=== PATIENT | female | born 1955 | race African-American/Black ===

== ENCOUNTER 2020-02-04 21:09 | Inpatient (IN) | payer MEDICARE, MEDICAID, OTHER ==
[2020-02-04 22:37] LABS: Anion Gap 20 mmol/L (10-20); BUN (Urea Nitrogen) 66 mg/dL (9.8-20.1); Calc. Creatinine Clearance 0 mL/min (70-130); Calcium 8.9 mg/dL (7.8-10.44); Carbon Dioxide 26 mmol/L (23-31); Chloride 123 mmol/L (98-107); Estimated GFR-MDRD 11; Glucose 262 mg/dL (80-115); Potassium 3.3 mmol/L (3.5-5.1); Sodium 166 mmol/L (136-145)
--- NOTE | 2020-02-05 00:42 | PDOC.FPRHP ---
- History of Present Illness Chief Complaint: Weakness History of Present Illness: Pt reports to ED today after EMS found her in her home after her family was unable to contact her for 48 hours. Her home was apparently heated 109 degrees due to no AC on in her house. Her Temp was 101. She was found to be poorly responsive at that time. Outlying ER: Was not able to answer questions. Her labs were found to be: Na was 174, Bun/Heat Treater Helper = 64.8/5.0, K+ = 3.9, WBC = 12K, H/H = 8.4/28.7. CT of abdomen showed an abscess in right abdominal wall. Unsure if patient was actually started on antibiotics at that time. Our ER: Pt was given another 1L of fluid. Her repeat labs were found to be: Na 166, Bun/Heat Treater Helper = 66/4.99. K+ = 3.3 Upon interviewing the patient, she was unable to give significant answers about what happened or her past medical history. - Allergies/Adverse Reactions Allergies Allergy/AdvReac Type Severity Reaction Status Date / Time No Known Drug Allergies Allergy Verified 02/05/20 11:19 - Home Medications Medication Instructions Recorded Confirmed Type Carvedilol 3.125 mg PO BID 02/05/20 02/05/20 History Levothyroxine Sodium [Synthroid] 75 mcg PO DAILY 02/05/20 02/05/20 History Losartan [Cozaar] 25 mg PO DAILY 02/05/20 02/05/20 History Lovastatin 40 mg PO HS 02/05/20 02/05/20 History cloNIDine HCl 0.1 mg PO BID 02/05/20 02/05/20 History metFORMIN HCl [Metformin HCl ER] 500 mg PO HS 02/05/20 02/05/20 History - History PMHx: -NHL, treated with chemo from December-Jun 2019. Had recent [facility] [place]. -HTN -Type 2 DM -HLD -Hypothyroidism PSHx: -hysterectomy FHx: -unknown Social: -lives alone -former smoker -no ETOH use -unknown drug use - Review of Systems General: reports: fatigue. denies: fever/chills Eyes: reports: other (headache) Cardiovascular: denies: chest pain, palpitation Gastrointestinal: reports: abdominal pain. denies: nausea, vomiting, diarrhea Neurological: reports: weakness - Vital signs BP: 96/45 HR: 70 RR: 18 Tmax: 98.2 - Physical Exam Constitutional: NAD HEENT: normocephalic and atraumatic, other (poor dentition, white plaques visualized on tongue) Heart: RRR Lungs: no rales/rhonchi, no wheezing, other (poor inspiratory effort) Abdomen: soft, other (tender mass palpable on RLQ, with flutuance) -Musculoskeletal: bilateral LE cold to touch -Skin: tenting of skin, capillary refill > 2 sec, dry/flaky skin, mucosal membranes dry , diffuse onychomycosis of bilateral feet Psychiatric: other (A&O x1, oriented to person only) FMR H&P: Results - Labs Result Diagrams: 02/05/20 02:17 02/05/20 08:28 Lab results: Sodium 166 mmol/L (136-145) H* 02/04/20 22:02 Potassium 3.3 mmol/L (3.5-5.1) L 02/04/20 22:02 Chloride 123 mmol/L (98-107) H 02/04/20 22:02 Carbon Dioxide 26 mmol/L (23-31) 02/04/20 22:02 BUN 66 mg/dL (9.8-20.1) H 02/04/20 22:02 Creatinine 4.99 mg/dL (0.6-1.1) H 02/04/20 22:02 Glucose 262 mg/dL (80-115) H 02/04/20 22:02 Calcium 8.9 mg/dL (7.8-10.44) 02/04/20 22:02 FMR H&P: A/P - Problem List (1) Hypernatremia Current Visit: Yes Status: Acute Code(s): E87.0 - HYPEROSMOLALITY AND HYPERNATREMIA (2) PADDY (acute kidney injury) Current Visit: Yes Status: Acute Code(s): N17.9 - ACUTE KIDNEY FAILURE, UNSPECIFIED (3) Type 2 diabetes mellitus Current Visit: Yes Status: Acute (4) Anemia Current Visit: Yes Status: Acute Code(s): D64.9 - ANEMIA, UNSPECIFIED (5) Non-Hodgkin lymphoma Current Visit: Yes Status: Acute Code(s): C85.90 - NON-HODGKIN LYMPHOMA, UNSPECIFIED, UNSPECIFIED SITE (6) HTN (hypertension) Current Visit: Yes Status: Acute Code(s): I10 - ESSENTIAL (PRIMARY) HYPERTENSION (7) Hypothyroid Current Visit: Yes Status: Acute Code(s): E03.9 - HYPOTHYROIDISM, UNSPECIFIED (8) HLD (hyperlipidemia) Current Visit: Yes Status: Acute Code(s): E78.5 - HYPERLIPIDEMIA, UNSPECIFIED (9) Oral omar Current Visit: Yes Status: Acute Code(s): B37.0 - CANDIDAL STOMATITIS (10) Volume depletion Current Visit: Yes Status: Acute Code(s): E86.9 - VOLUME DEPLETION, UNSPECIFIED - Plan ## Severe Hypernatremia 2/2 Volume Depletion -Na @ 166 -already had 2L fluids -NS @ 130ml/hr -goal to decrease Na @ 8-10mmol/24 hr -BMP Q4HR ## Pre Renal PADDY -Bun/Heat Treater Helper = 66/5 -careful volume resuscitation -strict I/O -BMP Q4HR ## Hypokalemia -K+ @ 3.3 -replete with 20mEq KCl -BMP Q4HR ## Abdominal Wall Abscess -[facility], unsure if antibiotics were given -will start on Zosyn 2.25g/Q6HR due to CrCl <20 -blood cultures taken at [facility] f/u ## NHL -recent radiation treatment @ [facility] in [place] -H/H .01/20.7 -recheck CBC in AM ## Anemia -H/H .01/20.7 -recheck CBC in AM ## Oral Candidiasis -nystatin oral suspension ## Type 2 DM -glucose 262 -mild SSI -hold home medication metformin ## Hypothyroidism -home medication levothyroxine 75mcg ## HTN -home medications coreg 3.125mg BID, clonidine, 0.1 BID, losartan 25mg, HCTZ 25mg -will hold for now ## HLD -home medication lovastatin 40mg Diet: Carb Consistent IVF: NS @ 130ml/hr PPX: Lovenox Code: Full-->need to verify with patient family PCP: Terry Flores Dispo: admitted to inpatient, telemetry. carefully monitoring electrolytes, volume resuscitation. will anticipate need for case management for discharge planning. FMR H&P: Upper Level - Plan Date/Time: 02/05/20 0040 I, Clarita oDrsey, have evaluated this patient and agree with findings/plan as outlined by r d internship resident. Pertinent changes/additions are listed here. 64 yo F with PMH non-hodgkins lymphoma, DM, HTN, hypothyroid presents via EMS after family was unable to get in touch with her. No history able to be obtained from patient. She does not know why she is in the hospital and can give no account. ED course as above. PE: Gen: sitting up comfortably in bed, alert, oriented to person only, pleasantly confused ENT: oral omar Heart: RRR, 3/6 systolic ejection murmur Lungs: CTAB Abd: R side TTP with large fluctuant, firm area. No erythema. Ext: decreased turgor, MM dry Severe hypernatremia -Likely 2/2 volume depletion. No current ongoing loss. -Initial Na+ 174 @ 16:30 on 02/03. Free water deficit at that time, 8L. s/p 2 L in outside and our ED. Considered chronic as symptoms present for unknown duration, and likely >48h. Goal decrease of 10 per 24 hours. Patient had decrease of 8 in 6 hour period. Will continue to trend BMP q4h and replace volume deficit with caution as to avoid too rapid correction. Goal to replace free water deficit in first 24 hours if possible, now to replace 2L in next 15 hours. Will start NS @ 130. This does not take into account maintenance requirement. May increase rate pending next BMP. Abdominal wall abscess -Mentioned in [facility] ED doctor notes though no CT report available. CD in chart. Will request records. WBC 12 on admission. -Cefepime was ordered in outside in ED but seems it was never given. Will start Zosyn renally dosed for now and will benefit from further info in am. -Blood and urine cultures in [facility] pending PADDY -Needs significant volume repletion. CR 5. Microcytic anemia -No current bleeding source, Hgb 8.4, continue to trend. Expect further decrease with volume repletion Hypokalemia -Replace and monitor Addendum - Attending - Attending Attestation Date/Time: 02/05/20 0876 I personally evaluated the patient and discussed the management with Dr. Carpenter/ Willian. I agree with the History, Examination, Assessment and Plan documented above with any addition or exceptions noted below. Somnolent at time of my exam. Na has been correcting too quickly. Will slow NS rate and allow her to equilibrate overnight. Repeat BMP pending at this time. Gen surg consulted to evaluate abscess on her right flank/abdomen seen on CT scan. F/U recommendations.
[2020-02-05] MEDS ORDERED: Acetaminophen 325 MG TAB PO PRN (01:00)
[2020-02-05] MEDS ORDERED: Ondansetron ODT 4 MG TAB PO PRN (01:00)
[2020-02-05] MEDS ORDERED: Ondansetron PF 4 MG/2 ML Vial IVP PRN (01:00)
[2020-02-05] MEDS ORDERED: Sodium Chloride 0.9% 1,000 ML IV SCH (01:15)
[2020-02-05] MEDS ORDERED: Dextrose 5% in Water 1,000 ML IV PRN (01:29)
[2020-02-05] MEDS ORDERED: Dextrose 50% Abboject 50 ML SYRINGE SLOW IVP PRN (01:29)
[2020-02-05] MEDS ORDERED: Potassium Chloride 20 MEQ/100 ML PREMIX BAG IVPB SCH (01:30)
[2020-02-05 02:47] LABS: Anion Gap 22 mmol/L (10-20); BUN (Urea Nitrogen) 70 mg/dL (9.8-20.1); Calc. Creatinine Clearance 0 mL/min (70-130); Calcium 9.1 mg/dL (7.8-10.44); Carbon Dioxide 25 mmol/L (23-31); Chloride 124 mmol/L (98-107); Estimated GFR-MDRD 10; Glucose 210 mg/dL (80-115); Potassium 3.6 mmol/L (3.5-5.1); Sodium 167 mmol/L (136-145)
[2020-02-05 02:48] LABS: Band 37 % (5-11); Hemoglobin 8.4 g/dL (12.0-16.0); Hypochromia SLIGHT = 6-15 cells (100X) (0-5/hpf); Lymphocytes 15 % (21-51); MDiff Complete? YES; Mean Corpuscular HGB CONC 29.9 g/dL (32.0-36.0); Mean Corpuscular Hemoglobin 23.6 pg (27.0-31.0); Mean Corpuscular Volume 78.8 fL (78.0-98.0); Mean Platelet Volume 7.5 fL (7.4-10.4); Metamyelocyte 1 % (0-0); Monocytes 7 % (0-10); Myelocyte 1 % (0-0); Neutrophil 38 % (42-75); Platelet Count 156 thou/uL (130-400); Platelet Morphology Comment Appears Adequate; RBC Distribution Width 20.4 % (11.5-14.5); Reactive Lymphocytes 1 % (0-10); Red Blood Cell (RBC) Count 3.54 mill/uL (4.20-5.40); White Blood Cell (WBC) Count 8.2 thou/uL (4.8-10.8)
[2020-02-05] MEDS ORDERED: Lactated Ringer's 1,000 ML IV SCH ×4 (05:30→09:18)
[2020-02-05] MEDS ORDERED: Dextrose 5% in Water 1,000 ML IV SCH (05:30)
[2020-02-05] MEDS: Piperacillin/Tazobactam 2.25 GM in Sodium Chloride 0.9% 100 ML IVPB SCH ×4 (05:38→22:03)
[2020-02-05] MEDS: HumaLOG 300 UNITS/3 ML VIAL SC PRN (06:25)
[2020-02-05] MEDS: Heparin 5,000 UNITS/ML VIAL SC SCH ×3 (08:35→22:03)
[2020-02-05] MEDS: Nystatin 500,000 UNITS/5 ML UDCUP SSW SCH ×4 (08:35→22:03)
[2020-02-05 08:54] LABS: Anion Gap 19 mmol/L (10-20); BUN (Urea Nitrogen) 74 mg/dL (9.8-20.1); Calc. Creatinine Clearance 12 mL/min (70-130); Calcium 8.4 mg/dL (7.8-10.44); Carbon Dioxide 27 mmol/L (23-31); Chloride 118 mmol/L (98-107); Estimated GFR-MDRD 10; Glucose 224 mg/dL (80-115); Potassium 3.5 mmol/L (3.5-5.1); Sodium 160 mmol/L (136-145)
[2020-02-05] MEDS ORDERED: Insulin Glargine 10 UNITS in Pre-Filled Syringe 1 EACH SC SCH (09:00)
[2020-02-05] MEDS ORDERED: Enoxaparin Sodium 30 MG/0.3 ML SYRINGE SC SCH (09:00)
[2020-02-05] MEDS: Sodium Chloride 0.9% 1,000 ML IV SCH ×4 (10:24→22:04)
--- NOTE | 2020-02-05 12:13 | RAD ---
CHEST 1 VIEW: Date: 02/05/2020 HISTORY: Fluid overload. COMPARISON: Radiograph prior day. FINDINGS: The port catheter tip is at the mid SVC. No air space consolidation, pneumothorax, or effusion. No ac venetie ira osseous abnormality. Cardiac silhouette and mediastinal contours are similar. IMPRESSION: 1. No acute intrathoracic abnormality. 2. Calcific tendinosis left rotator cuff. POS: [facility]
[2020-02-05 14:59] LABS: Bilirubin 1+ (Negative); Blood, Urine 1+ (Negative); Clarity Extra Turbid (Clear); Glucose, Urine (Dipstick) 30 mg/dL (Negative); Ketone, Urine Negative (Negative); Leukocyte 250 Leu/uL (Negative); Nitrite Negative (Negative); Protein, Urine (Dipstick) 70 mg/dL (Neg-Trace); Specific Gravity, Urine 1.023 (1.002-1.036); Squamous Epithelial 0-3 HPF (0-3); Urobilinogen Normal mg/dL (Less than 2); WBC/HPF Greater than 50 HPF (0-3)
[2020-02-05 15:01] LABS: Bacteria/HPF 1+ HPF (None Seen)
[2020-02-05 15:02] LABS: Urine Culture Reflex Yes Yes
[2020-02-05 16:41] LABS: Anion Gap 19 mmol/L (10-20); BUN (Urea Nitrogen) 70 mg/dL (9.8-20.1); Calc. Creatinine Clearance 13 mL/min (70-130); Calcium 7.7 mg/dL (7.8-10.44); Carbon Dioxide 22 mmol/L (23-31); Chloride 111 mmol/L (98-107); Estimated GFR-MDRD 12; Glucose 137 mg/dL (80-115); Potassium 3.6 mmol/L (3.5-5.1); Sodium 148 mmol/L (136-145)
[2020-02-05] MEDS ORDERED: HumaLOG 300 UNITS/3 ML VIAL SC SCH (17:00)
--- NOTE | 2020-02-05 20:24 | CON ---
DATE OF CONSULTATION: HISTORY OF PRESENT ILLNESS: Alicja An is a 64-year-old female, lives in [facility]. Apparently, the patient could not be reached at home by her family and the EMS arrived. The patient answered the door and refused to be cooperative, but finally let EMS in and the patient's house was 109 degrees. The patient's temperature was 101 degrees. She was very dehydrated. She was seen in [place] and sodium was 177, chloride 123, CO2 of 26, BUN 64, creatinine 5. The patient was hydrated, transferred to this facility, admitted by [facility]. CAT scan of the abdomen and pelvis revealed a hernia in [place], although I cannot view that image at this time and there is no official report. There was some necrotic tumor mass reported on the CAT scan. As stated above, I cannot review the scan or report at this hour as radiologist is not available. The CD ROM provided, but not seem to load. The patient is not a reliable historian and cannot give a past history. I called the patient's nieces, who have been closely involved in her care. The patient apparently has had abdominal wall hernia for more than 10 years. She reported to the hospital regarding this, found to have lymphoma on workup. She had undergone chemotherapy, began in March 2019, treating her for non-Hodgkin lymphoma. She completed chemotherapy in September 2018. This was overseen by [facility], Dr. Barry, . The patient had a PET scan demonstrating tumor mass in her liver and referred to Dr. Jernigan, radiation oncologist, . She finished radiation therapy about 3-4 weeks ago. She was to follow up this week with [facility] and have another CAT scan to determine response to therapy. Family states the patient had been having some problems eating in pain, but was able to hold things down. Apparently, the patient was staying with her nieces in [place], but the patient wanted to go home and told the family that the doctor said it would be okay. PAST MEDICAL HISTORY: Diabetes, hypertension. Family describes chronic low heart rate. PAST SURGICAL HISTORY: Hysterectomy, bilateral salpingo-oophorectomy, and MediPort, right subclavian vein. REVIEW OF SYSTEMS: From the family reveals no history of coronary or pulmonary disease. She does not smoke. She does not drink alcohol. MEDICATIONS: At home, 1. Levothyroxine 75 mcg a day. 2. Metformin 500 at bedtime. 3. Clonidine 0.1 mg b.i.d. 4. Carvedilol 3.125 mg b.i.d. 5. Losartan 25 mg daily. 6. Lovastatin 80 mg at bedtime. At this facility, the patient's sodium was 160 on arrival at 8 o'clock, it was 148 at 1119 hours. She has normal saline running at 150 an hour. Potassium is 3.6, chloride 111, carbon dioxide 22, BUN 70, creatinine 4.5, decreased from 5 on admission. Glucoses are 260 to 190. White count 8 and hemoglobin 8.4. The patient's exam reveals that she does talk, although pauses and takes some time to answer questions and does not reveal the answer to many questions. PHYSICAL EXAMINATION: VITAL SIGNS: She is 5 feet tall, pounds, 29 BMI, temperature 97.4, pulse 54, and blood pressure 96/55. Rivero catheter was placed, reveals urine in the bag. LUNGS: Clear to auscultation. No rhonchi. No wheezes. CARDIAC: Regular rate and rhythm. ABDOMEN: Skin changes consistent with recent radiation therapy. She is slightly tender in her upper abdomen. This may be more skin changes from radiation. Her abdomen is slightly protuberant. There appears to be a very large hernia mass. EXTREMITIES: No ankle edema. ASSESSMENT AND PLAN: 1. Non-Hodgkin lymphoma, status post chemotherapy, began in March 2019, more recent radiation therapy to abdomen, liver, and finished three to four weeks ago. Has been home one week from [place]. PET scan reveals some liver disease. According to the family, it was treated with radiation therapy. Oncologist, Medical, and Radiation as listed above. 2. Long-standing ventral hernia. It is tender to palpation, but underlies in an area of radiation changes, completed radiation 3-4 weeks ago. I would like to review her CAT scan and talk with Dr. Jenrigan, her radiation oncologist. 3. Severe dehydration, hypernatremia, acute kidney injury. We would recommend Nephrology consult. 4. Hypertension. 5. Diabetes. ADDENDUM: I have spoken with Dr. Jernigan, radiation oncologist, and to Dr. 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 The patient underwent 6 cycles of CHOP therapy. She has a past history of chronic kidney disease with creatinine of 1.7 to 2. It has been down to 0.8 in late November, but in later 2018, was 2. She as stated above underwent completion radiation therapy for residual disease of liver. Late in 2019, she had a biliary stent placed for biliary disease. This is the balance of the information that I received from these 2 oncologists. Plan is attempt at nonsurgical management with HIDA scan and percutaneous drainage of the process and make further recommendations based on the outcomes of these interventions. Job ID: [id number]
[2020-02-05] MEDS ORDERED: Sodium Chloride 0.9% 500 ML IV SCH (20:45)
[2020-02-05] MEDS ORDERED: cloNIDine 0.1 MG TAB PO SCH (21:00)
[2020-02-06] MEDS: Carvedilol 3.125 MG TAB PO SCH ×2 (03:55→09:05)
[2020-02-06] MEDS: Piperacillin/Tazobactam 2.25 GM in Sodium Chloride 0.9% 100 ML IVPB SCH ×3 (04:30→18:06)
[2020-02-06] MEDS: Levothyroxine Sodium 75 MCG TAB PO SCH (04:31)
--- NOTE | 2020-02-06 05:10 | PDOC.FM ---
- Subjective Subjective: Pt states she feels ok this morning. She reports some abdominal pain. She denies weakness, SOB, chest pain, or nausea. - Objective MAR Reviewed: Yes Vital Signs & Weight: Vital Signs (12 hours) Temp Pulse Resp BP BP Pulse Ox 02/06/20 04:32 98.3 F 56 L 16 90/46 L 95 02/06/20 03:36 56 L 14 91/50 L 02/06/20 00:00 97.8 F 59 L 16 87/43 L 93 L 02/05/20 22:21 86/48 L 02/05/20 20:19 97.6 F 58 L 14 86/53 L 100 02/05/20 20:00 93 L Weight Admit Weight 67.302 kg Weight 67.302 kg I&O: 02/04/20 02/05/20 02/06/20 06:59 06:59 06:59 Intake Total 2829 Output Total 200 Balance 2629 Result Diagrams: 02/06/20 04:56 02/06/20 04:56 Phys Exam - Physical Examination Constitutional: NAD HEENT: moist MMs Neck: no JVD Respiratory: no wheezing, clear to auscultation bilateral Cardiovascular: RRR 2/6 systolic murmur Gastrointestinal: positive bowel sounds TTP on the right Musculoskeletal: no edema, pulses present Neurological: normal sensation, moves all 4 limbs Deviation from normal: AAO to person and place Dx/Plan - Plan Plan: Severe hypernatremia 2/2 volume depletion, improving -Continue fluid recusitation -Monitor for fluid overload Pre renal PADDY -mild improvement overnight -Nephrology consulted Hypokalemia, resolved Abdominal wall abscess vs necrotic tissue -Dr. Sims consulted for evaluation -Currently on renally dosed Zosyn DM2 -Continue lantus, holding meal time Humalog due to poor eating NHL -Monitoring H/H Anemia -Monitoring H/H, likely 2/2 chemo, radiation, and NHL -Decreased to Hgb of 7.4, likely 2/2 hemodilution, will transfuse at less than 7.0 unless surgery is indicated Hypothyroidism -TSH appropriate, continue home levothyroxine 75mcg HTN -Pt has been having low BPs overnight. I will hold clonidine this AM, continue coreg HLD -Continue home lovastatin Addendum - Attending - Attending Attestation Date/Time: 02/06/20 8672 I personally evaluated the patient and discussed the management with Dr. Boswell. I agree with the History, Examination, Assessment and Plan documented above with any addition or exceptions noted below. Nephro consulted by gen surg. Patient's Cr and Na were improving. Chloride now uptrending so will switch to LR. CT guided drainage of abdominal wall fluid collection today. F/U gen surg recs.
[2020-02-06 05:31] LABS: ALT (SGPT) 13 U/L (8-55); AST (SGOT) 18 U/L (5-34); Albumin 2.4 g/dL (3.4-4.8); Alkaline Phosphatase 79 U/L (40-110); Anion Gap 16 mmol/L (10-20); BUN (Urea Nitrogen) 63 mg/dL (9.8-20.1); Bilirubin, Total 0.7 mg/dL (0.2-1.2); Calc. Creatinine Clearance 17 mL/min (70-130); Calcium 7.2 mg/dL (7.8-10.44); Carbon Dioxide 19 mmol/L (23-31); Chloride 115 mmol/L (98-107); Estimated GFR-MDRD 16; Globulin 2.8 g/dL (2.4-3.5); Glucose 102 mg/dL (80-115); Potassium 3.3 mmol/L (3.5-5.1); Protein, Total 5.2 g/dL (6.0-8.3); Sodium 147 mmol/L (136-145)
[2020-02-06 05:42] LABS: Band 26 % (5-11); Hemoglobin 7.4 g/dL (12.0-16.0); Hypochromia SLIGHT = 6-15 cells (100X) (0-5/hpf); Lymphocytes 9 % (21-51); MDiff Complete? YES; Mean Corpuscular Hemoglobin 23.2 pg (27.0-31.0); Mean Corpuscular Volume 77.5 fL (78.0-98.0); Mean Platelet Volume 11.4 fL (7.4-10.4); Microcytosis SLIGHT = 6-15 cells (100X) (0-5/hpf); Monocytes 13 % (0-10); Neutrophil 52 % (42-75); Platelet Count 65 thou/uL (130-400); Platelet Morphology Comment Appears Decreased; RBC Distribution Width 20.2 % (11.5-14.5); Red Blood Cell (RBC) Count 3.17 mill/uL (4.20-5.40); White Blood Cell (WBC) Count 5.8 thou/uL (4.8-10.8)
[2020-02-06] MEDS ORDERED: Potassium Chloride 20 MEQ TAB PO SCH (06:30)
[2020-02-06] MEDS: Sodium Chloride 0.9% 1,000 ML IV SCH (07:06)
[2020-02-06] MEDS: Insulin Glargine 14 UNITS in Pre-Filled Syringe 1 EACH SC SCH (09:06)
[2020-02-06] MEDS: Nystatin 500,000 UNITS/5 ML UDCUP SSW SCH ×3 (09:07→17:11)
[2020-02-06] MEDS: Heparin 5,000 UNITS/ML VIAL SC SCH (09:12)
--- NOTE | 2020-02-06 09:24 | CON ---
DATE OF CONSULTATION: HISTORY OF PRESENT ILLNESS: Ms. An is a 64-year-old black female, who was admitted due to an acute kidney injury. She was found at home, poorly responsive with no air conditioning at the same time. She was found to be in acute kidney injury. Empiric aggressive volume repletion was given. She was also noted to be hypernatremic. This morning, the patient is feeling a little better, but her conversation with me was somewhat limited. She is still confused. REVIEW OF SYSTEMS: Positive for mental status change. No chest pain. No shortness of breath. No nausea. No vomiting. ? of syncopal episode. No productive cough. Decreased appetite. Decreased energy level. No abdominal pain. CURRENT MEDICATIONS: Include the following; 1. Currently on Coreg 3.125 mg p.o. b.i.d. 2. Currently on insulin glargine 14 units subcu q.a.m. 3. Levothyroxine 75 mcg daily. 4. Normal saline at 150 mL/hr. 5. Zosyn 2.25 g IV q.6 hours. 6. P.r.n. potassium replacement. HOME MEDICATIONS: Included; 1. Metformin 500 mg p.o. at bedtime. 2. Clonidine 0.1 mg p.o. b.i.d. 3. Losartan 25 mg daily. 4. Lovastatin 40 mg tablet at bedtime. PAST MEDICAL HISTORY: 1. Type-2 diabetes mellitus. 2. Hypertension. 3. Hyperlipidemia. 4. Hypothyroidism. 5. History of non-Hodgkin's lymphoma, status post chemotherapy. 6. History of tumor mass. PAST SURGICAL HISTORY: 1. Status post hysterectomy. 2. Status post bilateral salpingo-oophorectomy. 3. Status post MediPort placement at the right subclavian vein. SOCIAL HISTORY: The patient lives in [place]. The patient lives alone. She is a former smoker. Currently, no alcohol or IV drug use. ALLERGIES: NO KNOWN DRUG ALLERGIES. TRAUMA: None. IMMUNIZATION: Unknown. HOSPITALIZATIONS: Please see past medical history. PHYSICAL EXAMINATION: VITAL SIGNS: Blood pressure is currently at 100/54, heart rate 58, respiratory rate 20, temperature 98.5, O2 saturation 96%. GENERAL: The patient is arousable, but lethargic. Limited conversation was done. SKIN: Decreased turgor. HEENT: She has pale conjunctivae. Anicteric sclerae. No neck mass. No carotid bruits. No JVD. CHEST: No deformities. LUNGS: Decreased breath sounds. HEART: Normal sinus rhythm. No murmur. No gallops. No rubs. ABDOMEN: Globular, soft, nontender. No masses. EXTREMITIES: No edema. No deformities. NEUROLOGICAL: The patient is confused, limited interaction with conversation. IMAGING DATA: Chest x-ray showed no acute intrathoracic abnormality. LABORATORY DATA: Laboratories on February 06, 2020; white count 5.8, hemoglobin 7.4. Sodium 147, potassium 3.3, chloride 115, carbon dioxide 19, BUN 63, creatinine 3.55, albumin 2.4. On February 05, 2020; BUN 70, creatinine 4.5. On February 05, 2020; serum sodium was 160, BUN 74, creatinine 5.04 with potassium 3.5. On February 04, 2020; serum sodium 166, BUN 66, creatinine 4.99. Urinalysis on February 05, 2020; specific gravity was 1.023, RBC 11-20, WBC greater than 50, protein is 70. No pigmented granular casts. ASSESSMENT AND PLAN: 1. Acute kidney injury - consider hemodynamically-mediated renal dysfunction. The patient's clinical history suggests that she was volume depleted and has expose to a possible heated house. The patient has no air conditioning with her house. Empiric volume repletion is being given and has shown improvement with IV hydration. There is no indication for any emergent dialysis with this patient. Urinalysis did not suggest any acute tubular necrosis. Please note that urine specific gravity is very concentrated suggesting volume depletion. 2. Hypernatremia - secondary to free water deficit. Agree with current IV fluids - currently receiving normal saline and this has improved the serum sodium as well as the renal function. I do not think we need to change the IV fluid for the moment. 3. Urinary tract infection, currently on empiric IV antibiotics. Overall, agree with current management. Consider rechecking renal ultrasound with this patient if this has not been done yet. Thank you for the consult. We will continue to follow. Job ID: [id number]
--- NOTE | 2020-02-06 10:08 | PRG ---
DATE OF SERVICE: 02/06/2020 SUBJECTIVE: Alicja An today is more communicative, although not a reliable historian. She is able to articulate words and make sentences, although slightly confused. She is much better mentally today than yesterday. Dr. Jacob Lisa has seen her and her renal function is improving. She is nonoliguric renal failure. OBJECTIVE: VITAL SIGNS: Temperature 98.5 degrees, heart rate 58, respiratory rate 20, 96% saturation, and blood pressure 100/54. GENERAL: The patient today states that she is not having any pain. She denies having abdominal pain. LUNGS: Clear to auscultation. CARDIAC: Regular rate and rhythm without murmur, rub, or gallop. ABDOMEN: Soft with a large hernia mass protruding supraumbilical, 5 cm defect, projecting to the right upper abdomen. LABORATORY DATA: This morning, her white count is 5.8, hemoglobin 7.4, she does have 26% bands. Her sodium is 147; potassium 3.3; carbon dioxide 19; BUN 63, improved from 70; creatinine 3.5, improved from 4.5; GFR 16, improved from 12. Urine output overnight is 550 mL. She is continued to be hydrated with normal saline. ASSESSMENT AND PLAN: 1. Ventral hernia, present for more than 10 years. There is no evidence of obstruction. I personally reviewed her CAT scans from [place], compared most recent CAT scan 2 days ago noncontrast with a noncontrast CAT scan stone protocol from 2019 prior to treatment of lymphoma. The patient on that 2019 CAT scan had multiple large right hepatic masses. She had a soft tissue mass in the herniated intraabdominal contents. In 2019, the ventral hernia had hepatic flexure colon present and a fluid collection. On this more recent CAT scan, the fluid collection persists with punctate areas of free air in the periphery, in the fluid content. What is new also is what appears to be calcific density, probably a gallstone from the gallbladder that was present in 2019. Also present is a biliary stent, which was not communicated by the family. She has multiple gallstones on her CAT scan. Concern is that with her normal white count with a left shift, she may have perforated gallbladder, as we interpret the CAT scan, currently appears to be a fluid collection emanating from the gallbladder area where there was inflammatory changes around the gallbladder. There does not appear to be any small bowel or large bowel perforation and with the patient's biliary stent, she could have free air from cholecystitis. Plan at this time is a HIDA scan and a CT-guided drainage of the fluid collection. I will discuss these findings with her oncologist at [facility], for which merlin have provided a phone number. We will continue to hydrate her and treat with antibiotics and await the results of the imaging studies noted above. 2. Encephalopathy secondary to hypernatremia and sepsis. 3. Acute kidney injury. It is unknown of her previous renal function. We will check with her oncologist when I talk to him. The tumor masses in the liver seen in 2019 since her radiation therapy of her abdominal wall, liver have improved. Job ID: [id number]
--- NOTE | 2020-02-06 10:24 | ULT ---
ULTRASOUND RETROPERITONEUM COMPLETE: (RENAL) DATE: 02/06/2020 HISTORY: 64-year-old female with renal failure FINDINGS: The right kidney measures 12 x 4.5 x 5.5 cm. The left kidney measures 12 x 6 x 5.5 cm. Both kidneys have normal parenchymal echogenicity. There is no hydronephrosis. No moderate sized or large renal cystic or solid renal lesion is identified. According to the ventilation mechanic, there is a Rivero catheter in an empty urinary bladder. IMPRESSION: normal sonographic appearance of the kidneys.
[2020-02-06] MEDS: Lactated Ringer's 1,000 ML IV SCH (13:24)
[2020-02-06] MEDS ORDERED: Midazolam HCl 2 mg/2 ml Vial ONE (13:26)
[2020-02-06] MEDS ORDERED: Fentanyl 100 MCG/2 ML VIAL ONE (13:26)
[2020-02-06] MEDS ORDERED: Sodium Bicarbonate 2.5 MEQ/5 ML VIAL ONE (13:26)
[2020-02-06 14:03] LABS: SARS-CoV-2 MS2 Positive; SARS-CoV-2 N Gene Negative; SARS-CoV-2 S Gene Negative; SARS-CoV-2 by NAA Not Detected (NotDetected); SARS-CoV-2 orf1ab Negative
--- NOTE | 2020-02-06 14:23 | NM ---
NM Hida (No EF) History: Evaluate for gallbladder rupture Comparison: CT exam February 04, 2020 Findings: Planar imaging of the abdomen was performed after the intravenous administration 5.1 mCi te chnetium 99m mebrofenin. Adequate hepatic radiotracer uptake. The gallbladder is seen quickly as well as the proximal small rbent wel. No evidence for bile leak within the soft tissue collection. Impression: No evidence for bile leak. Patent cystic and common bile duct duct stent.
--- NOTE | 2020-02-06 15:44 | CT ---
CT-guided abdominal abscess drainage: 02/06/2020 HISTORY: 64-year-old female with large abscess complicating a large right anterior abdominal wall hernia. TECHNIQUE: Signed informed consent obtained. Overlying skin prepared and draped in usual sterile fashion. Proced ure performed under step CT guidance. 25-gauge needle used to apply buffered lidocaine superficially and deeply. 5 Venezuelan Yueh catheter placed in tandem with the 25-gauge needle into the l umen of the abscess, from a left to right orientation. Stylette removed. 0.035 inch stiff Amplatz guidewire placed through Yueh catheter, into the abscess collection. UA catheter exchanged over the g uidewire for a 8 Venezuelan general purpose drainage catheter with stylette. Stylette and guidewire were removed. Pigtail loop formed and locked. Drainage catheter sutured in place at the skin. Patient tolerated procedure well. No complications. 5 mL of opaque brown purulent fluid sent to laboratory for culture and sensitivity. Additional 15 mL drained with syringe. Drainage catheter connected to ex ternal drainage bag via three-way stopcock. During aspiration, the catheter repeatedly clogged with debris, requiring forceful flush with 10 mL of normal saline x3. IMPRESSION: 1.) Successful CT-guided percutaneous drainage of large abscess within a large ventral abdominal brain ia. 8 Venezuelan pigtail drainage catheter left to external drainage. 2) if daily output is less than 20 mL, then recommend tube check under special procedures in 2 days, for possible exchange for a larger caliber drainage catheter.
[2020-02-06] MEDS ORDERED: Heparin 5,000 UNITS/ML VIAL SC SCH (21:00)
[2020-02-06] MEDS ORDERED: Sodium Chloride 0.9% 500 ML IV SCH (23:45)
[2020-02-07] MEDS: Lactated Ringer's 1,000 ML IV SCH ×4 (00:26→21:35)
[2020-02-07] MEDS: Piperacillin/Tazobactam 2.25 GM in Sodium Chloride 0.9% 100 ML IVPB SCH ×4 (00:27→21:35)
[2020-02-07 04:45] LABS: INR-International Normal Ratio 1.5; PTT 35.9 sec (22.9-36.1)
[2020-02-07 05:02] LABS: ALT (SGPT) 13 U/L (8-55); AST (SGOT) 17 U/L (5-34); Albumin 2.3 g/dL (3.4-4.8); Alkaline Phosphatase 99 U/L (40-110); Anion Gap 14 mmol/L (10-20); BUN (Urea Nitrogen) 48 mg/dL (9.8-20.1); Bilirubin, Total 0.7 mg/dL (0.2-1.2); Calc. Creatinine Clearance 29 mL/min (70-130); Calcium 7.4 mg/dL (7.8-10.44); Carbon Dioxide 21 mmol/L (23-31); Chloride 115 mmol/L (98-107); Estimated GFR-MDRD 26; Globulin 2.7 g/dL (2.4-3.5); Glucose 136 mg/dL (80-115); Potassium 3.4 mmol/L (3.5-5.1); Sodium 147 mmol/L (136-145)
[2020-02-07 05:04] LABS: Band 37 % (5-11); Eosinophils 2 % (0-10); Hemoglobin 6.5 g/dL (12.0-16.0); Lymphocytes 16 % (21-51); MDiff Complete? YES; Mean Corpuscular HGB CONC 30.2 g/dL (32.0-36.0); Mean Corpuscular Hemoglobin 23.2 pg (27.0-31.0); Mean Corpuscular Volume 76.7 fL (78.0-98.0); Mean Platelet Volume 9.6 fL (7.4-10.4); Monocytes 5 % (0-10); Neutrophil 39 % (42-75); Platelet Count 65 thou/uL (130-400); Platelet Morphology Comment Appears Decreased; Red Blood Cell (RBC) Count 2.79 mill/uL (4.20-5.40); White Blood Cell (WBC) Count 3.9 thou/uL (4.8-10.8)
--- NOTE | 2020-02-07 06:14 | PDOC.FM ---
- Subjective Subjective: Pt states she is doing well this morning. She denies chest pain, SOB, or severe abdominal pain. - Objective MAR Reviewed: Yes Vital Signs & Weight: Vital Signs (12 hours) Temp Pulse Resp BP BP Pulse Ox 02/07/20 04:26 97.5 F L 49 L 20 105/55 L 99 02/06/20 23:27 97.6 F 58 L 20 81/49 L 99 02/06/20 20:05 98.1 F 57 L 20 94/51 L 98 Weight Admit Weight 67.302 kg Weight 74.928 kg I&O: 02/05/20 02/06/20 02/07/20 06:59 06:59 06:59 Intake Total 4769 1241 Output Total 750 1250 Balance 4019 -9 Result Diagrams: 02/07/20 04:33 02/07/20 04:33 Phys Exam - Physical Examination Constitutional: NAD HEENT: moist MMs Neck: no JVD Respiratory: no wheezing, clear to auscultation bilateral Cardiovascular: RRR 2/6 systolic murmur Gastrointestinal: soft, no distention, positive bowel sounds pigtail catheter in place, no signs of infection or leakage around it Musculoskeletal: no edema, pulses present Neurological: normal sensation, moves all 4 limbs Deviation from normal: AAO to person, , but not place or time Skin: cap refill <2 seconds Dx/Plan - Plan Plan: Severe hypernatremia 2/2 volume depletion, improving -Continue fluid resuscitation -Monitor for fluid overload Pre renal PADDY -Serial improvements -Nephrology consulted Hypokalemia -Continue to replace Abdominal wall abscess vs necrotic tissue -Dr. Sims consulted for evaluation -Currently on renally dosed Zosyn -S/P CT guided 8 Yakut pigtail drain placement on 02/05 DM2 -Continue lantus, holding meal time Humalog due to poor eating NHL -Monitoring H/H Anemia -Monitoring H/H, likely 2/2 chemo, radiation, and NHL -Hemoglobin 6.5 this AM, transfusing 2 units with a lasix chaser Hypothyroidism -TSH appropriate, continue home levothyroxine 75mcg HTN -Holding coreg and clonidine for now with low BPs HLD -Continue home lovastatin Addendum - Attending - Attending Attestation Date/Time: 02/07/20 4360 I personally evaluated the patient and discussed the management with Dr. Boswell. I agree with the History, Examination, Assessment and Plan documented above with any addition or exceptions noted below. transfusing 2 u PRBC today for hemoglobin <7. abscess fluid growing multiple GNR. Awaiting further specialist recs. Prealbumin low. IV albumin per nephro. will start diet supplemental shake. Renal function continues to improve.
[2020-02-07] MEDS: Levothyroxine Sodium 75 MCG TAB PO SCH (06:23)
[2020-02-07] MEDS ORDERED: Furosemide 40 MG/4 ML VIAL SLOW IVP SCH ×2 (07:30→12:00)
[2020-02-07] MEDS ORDERED: Potassium Chloride 20 MEQ TAB PO SCH (08:00)
[2020-02-07] MEDS ORDERED: Albumin 25% 25 GM/100 ML BOT IVPB ONE (08:49)
--- NOTE | 2020-02-07 09:10 | PRG ---
DATE OF SERVICE: SERVICE: Renal Medicine. SUBJECTIVE: Ms. An is a 64-year-old black female, who was seen by the Renal Service for her acute kidney injury/hypernatremia. Empiric volume repletion was given with the patient with improvement of the renal function and hypernatremia. She also underwent CT-guided drainage of her abdominal abscess around the anterior abdominal wall hernia area. She is doing better since the drainage. In addition, renal ultrasound done on February 06, 2020, showed normal sonographic appearance of the kidneys. This morning, she voices no new complaints. The patient denies any chest pain or shortness of breath. OBJECTIVE: VITAL SIGNS: Blood pressure 91/46, heart rate 53, respiratory rate 16, temperature 98, and O2 saturation 97%. GENERAL: The patient is awake, alert, supine, comfortable, obese. SKIN: Adequate turgor. HEENT: She has a pale conjunctivae. Anicteric sclerae. NECK: No neck mass. No carotid bruits. No JVD. CHEST: No deformities. LUNGS: Clear breath sounds. No wheezing. No crackles. HEART: Normal sinus rhythm. No murmurs, gallops, or rubs. ABDOMEN: Globular, soft, nontender. No masses. EXTREMITIES: No edema. No deformities. MEDICATIONS: Medications of February 07, 2020, were reviewed. LABORATORY DATA: Laboratories of February 07, 2020; white count 10.9, hemoglobin 6.5. Sodium 147, potassium 3.4, chloride 105, carbon dioxide 21, BUN 40, creatinine 2.26, glucose 136, calcium 7.4, albumin is 2.3. Hemoglobin is 6.5. ASSESSMENT AND PLAN: 1. Anemia. Agree with blood transfusion. 2. Acute kidney injury-superimposed hemodynamically-mediated renal dysfunction. Continue IV fluid. Continue to optimize hemodynamics. We will start albumin infusion 25 g IV q.6. 3. Intraabdominal abscess. The patient is status post CT scan-guided drainage of the said abscess. In addition, hepatobiliary scan was done, which showed no overt abnormality per se. 4. Agree with current management. We will recheck basic metabolic panel and CBC in a.m. Job ID: [id number]
[2020-02-07] MEDS: Insulin Glargine 14 UNITS in Pre-Filled Syringe 1 EACH SC SCH (09:12)
[2020-02-07] MEDS: Albumin 25% 25 GM/100 ML BOT IVPB SCH ×3 (09:41→21:35)
[2020-02-07 11:28] VITALS: BMI 32.2
--- NOTE | 2020-02-07 11:35 | PDOC.GSPN ---
Surgery Progress Note: Subj - Subjective Narrative: Patient is feeling okay today. She is not complaining of any abdominal pain, although she is fish cleaner machine tender to palpation in the right abdomen overlying her hernia sac. The skin there is somewhat indurated as well. She has a drainage tube in place which has brownish-rand liquid pus in the drainage bag. She had 50 mL's out last night. Multiple gram-negative rods on culture so far. It does have an enteric odor. Her HIDA scan was negative for bile leak so the abscess origin is presumably bowel. Clinically however she is stable without evidence of peritonitis or sepsis. She is afebrile with no white count and has only focal tenderness overlying the abscess cavity. We will try to treat this conservatively with drainage. She may require a follow-up CT to evaluate the completeness of drainage, and whether the fluid collection appears to be reaccumulating which would suggest an ongoing enteric connection which could necessitate surgery. Currently however there is no indication for urgent surgery. No new recommendations at this time. Surgery Progress Note: Obj - Vital signs Vital signs: Vital Signs - Most Recent Temp Pulse Resp BP Pulse Ox 98.0 F 53 L 16 91/46 L 97 02/07/20 07:45 02/07/20 07:45 02/07/20 07:45 02/07/20 07:45 02/07/20 07:45 Surgery Progress Note: Results - Labs Result Diagrams: 02/07/20 04:33 02/07/20 04:33 Lab results: Laboratory Results - last 24 hr 02/06/20 02/07/20 02/07/20 23:34 04:30 04:33 WBC RBC Hgb Hct MCV MCH MCHC RDW Plt Count MPV Neutrophils % (Manual) Band Neuts % (Manual) Lymphocytes % (Manual) Monocytes % (Manual) Eosinophils % (Manual) Basophils % (Manual) Plt Morphology Comment PT 18.0 H INR 1.5 APTT 35.9 Sodium Potassium Chloride Carbon Dioxide Anion Gap BUN Creatinine Estimated GFR (MDRD) Glucose POC Glucose 140 H Calcium Magnesium 1.7 Total Bilirubin AST ALT Alkaline Phosphatase Serum Total Protein Albumin Globulin Albumin/Globulin Ratio Prealbumin Blood Type Antibody Screen Crossmatch 02/07/20 02/07/20 02/07/20 04:33 04:33 04:33 WBC 3.9 L RBC 2.79 L Hgb 6.5 L Hct 21.4 L MCV 76.7 L MCH 23.2 L MCHC 30.2 L RDW 20.0 H Plt Count 65 L MPV 9.6 Neutrophils % (Manual) 39 L Band Neuts % (Manual) 37 H Lymphocytes % (Manual) 16 L Monocytes % (Manual) 5 Eosinophils % (Manual) 2 Basophils % (Manual) 1 Plt Morphology Comment Appears Decreased L PT INR APTT Sodium 147 H Potassium 3.4 L Chloride 115 H Carbon Dioxide 21 L Anion Gap 14 BUN 48 H Creatinine 2.26 H Estimated GFR (MDRD) 26 Glucose 136 H POC Glucose Calcium 7.4 L Magnesium Total Bilirubin 0.7 AST 17 ALT 13 Alkaline Phosphatase 99 Serum Total Protein 5.0 L Albumin 2.3 L Globulin 2.7 Albumin/Globulin Ratio 0.9 L Prealbumin Blood Type B POSITIVE Antibody Screen NEGATIVE Crossmatch See Detail 02/07/20 02/07/20 05:21 09:31 WBC RBC Hgb Hct MCV MCH MCHC RDW Plt Count MPV Neutrophils % (Manual) Band Neuts % (Manual) Lymphocytes % (Manual) Monocytes % (Manual) Eosinophils % (Manual) Basophils % (Manual) Plt Morphology Comment PT INR APTT Sodium Potassium Chloride Carbon Dioxide Anion Gap BUN Creatinine Estimated GFR (MDRD) Glucose POC Glucose Calcium Magnesium Total Bilirubin AST ALT Alkaline Phosphatase Serum Total Protein Albumin Globulin Albumin/Globulin Ratio Prealbumin Less than 5.0 L Blood Type B POSITIVE Antibody Screen Crossmatch
--- NOTE | 2020-02-07 14:31 | PQF ---
CLINICAL DOCUMENTATION CLARIFICATION FORM: Patient Name: HECTOR AC Date of : 1955 Account: [id number] Admit Date: 02/05/2020 Facility: [facility] [place] Dear DR. Nidia SALINAS Date: 02/07/2020 1424 Please exercise your independent, professional judgment in responding to the clarification form. Clinical indicators are provided on the bottom of this form for your review. Please check appropriate box(es): Encephalopathy: Type: [ x ] Acute [ ] Subacute [ ] Chronic Etiology: [ ] Hypertensive [ x ] Metabolic [ ] Toxic [ x ] Septic [ ] Unspecified [ ] Other (please specify) [ ] Transient Alteration of Awareness [ ] Other diagnosis [ ] Unable to determine In addition, please specify: Present on Admission (POA): [x ] Yes [ ] No [ ] Unable to determine For continuity of documentation, please document condition throughout progress notes and discharge summary. Thank You. To be completed by CDI/Coding staff for physician review: CLINICAL INDICATORS - SIGNS / SYMPTOMS / LABS / RESULTS AND LOCATION IN EMR 02/04 ED REPORT: PT FOUND AFTER 2 DAYS INSIDE OF HOT HOUSE. PER REPORT PATIENT WAS FOUND WITH INSIDE TEMPERATURE OF 109. PATIENT RECENTLY DISCHARGED FROM THE HOSPITAL. PT WAS TRANSFERRED FOR CONTINUING TREATMENT OF DEHYDRATION AND LACTIC ACIDOSIS. FINAL PHYSICIAN DX: HYPERNATREMIA, ACUTE RENAL FAILURE, LACTIC ACIDOSIS 02/04 H&P ( SELLI) SHE WAS FOUND TO BE POORLY RESPONSIVE; UPON INTERVIEWING THE PATIENT, SHE WAS UNABLE TO GIVE SIGNIFICANT ANSWERS ABOUT WHAT HAPPENED OR HER PAST MEDICAL HISTORY. A/P: 1). SEVERE HYPERNATREMIA, 2). PADDY, 10). VOLUME DEPLETION 02/04 CONSULT (ALORD) A/P: 3). SEVERE DEHYDRATION 02/05 PN (SAVANNA) ENCEPHALOPATHY SECONDARY TO HYPERNATREMIA AND SEPSIS 02/05 CONSULT (HINTON) A/P: 3). URINARY TRACT INFECTION. RISK FACTORS / RESULTS AND LOCATION IN EMR DX HYPERNATREMIA, PADDY (H&P/SELLI) 02/04 TREATMENTS / RESULTS AND LOCATION IN EMR ZOSYN IV ( 02/05-PRESENT) SODIUM CHLORIDE IV FLUIDS (02/04-PRESENT) THANK YOU! [facility] Signature: MADISON GUARDADO RN Phone #: [phone] Date/ Time: 02/07/2020 1424 This is a permanent part of the Medical Record [facility]
[2020-02-07 23:03] LABS: Hemoglobin 9.2 g/dL (12.0-16.0); Mean Corpuscular Hemoglobin 25.6 pg (27.0-31.0); Mean Corpuscular Volume 79.8 fL (78.0-98.0); Mean Platelet Volume 9.1 fL (7.4-10.4); Platelet Count 47 thou/uL (130-400); RBC Distribution Width 19.1 % (11.5-14.5); Red Blood Cell (RBC) Count 3.61 mill/uL (4.20-5.40); White Blood Cell (WBC) Count 4.8 thou/uL (4.8-10.8)
[2020-02-08] MEDS: Piperacillin/Tazobactam 2.25 GM in Sodium Chloride 0.9% 100 ML IVPB SCH ×4 (01:04→21:30)
[2020-02-08] MEDS: Albumin 25% 25 GM/100 ML BOT IVPB SCH ×2 (02:56→08:58)
[2020-02-08] MEDS: Levothyroxine Sodium 75 MCG TAB PO SCH (05:27)
[2020-02-08 05:33] LABS: #Eosinphils 0.1 thou/uL (0.0-0.7); #Lymphocytes 0.6 thou/uL (1.20-3.40); #Monocytes 0.2 thou/uL (0.11-0.59); #Neutrophils 1.6 thou/uL (1.40-6.50); %Eosinophils 2.1 % (0.0-10.0); %Lymphocytes 23.6 % (21.0-51.0); %Monocytes 7.3 % (0.0-10.0); %Neutrophils 67.1 % (42.0-75.0); Mean Corpuscular HGB CONC 31.5 g/dL (32.0-36.0); Mean Corpuscular Hemoglobin 25.3 pg (27.0-31.0); Mean Corpuscular Volume 80.3 fL (78.0-98.0); Mean Platelet Volume 10.5 fL (7.4-10.4); Platelet Count 48 thou/uL (130-400); RBC Distribution Width 19.3 % (11.5-14.5); Red Blood Cell (RBC) Count 3.15 mill/uL (4.20-5.40); White Blood Cell (WBC) Count 2.4 thou/uL (4.8-10.8)
[2020-02-08 05:53] LABS: ALT (SGPT) 9 U/L (8-55); AST (SGOT) 12 U/L (5-34); Alkaline Phosphatase 114 U/L (40-110); Anion Gap 13 mmol/L (10-20); BUN (Urea Nitrogen) 35 mg/dL (9.8-20.1); Bilirubin, Total 0.9 mg/dL (0.2-1.2); Calc. Creatinine Clearance 43 mL/min (70-130); Calcium 7.9 mg/dL (7.8-10.44); Carbon Dioxide 22 mmol/L (23-31); Chloride 111 mmol/L (98-107); Estimated GFR-MDRD 41; Globulin 2.1 g/dL (2.4-3.5); Glucose 136 mg/dL (80-115); Potassium 3.4 mmol/L (3.5-5.1); Protein, Total 5.1 g/dL (6.0-8.3); Sodium 143 mmol/L (136-145)
--- NOTE | 2020-02-08 06:03 | PDOC.FM ---
- Subjective Subjective: Overnight, tele reports she had bradycardia to 40s. States her abdominal pain is about the same. No new complaints. No chest pain, headache, SOB. - Objective Vital Signs & Weight: Vital Signs (12 hours) Temp Pulse Resp BP Pulse Ox 02/08/20 03:11 97.2 F L 45 L 20 94/57 L 97 02/07/20 23:29 97.4 F L 49 L 20 90/49 L 99 02/07/20 19:44 97.6 F 50 L 20 120/72 99 Weight Admit Weight 67.302 kg Weight 74.928 kg I&O: 02/06/20 02/07/20 02/08/20 06:59 06:59 06:59 Intake Total 4765 3175 1781 Output Total 750 1300 3025 Balance 4019 1875 -1244 Result Diagrams: 02/08/20 05:11 02/08/20 05:11 Phys Exam - Physical Examination Constitutional: NAD HEENT: PERRLA, moist MMs Neck: supple Respiratory: no wheezing, no rales, no rhonchi, clear to auscultation bilateral Cardiovascular: RRR, no significant murmur Gastrointestinal: soft, no distention, positive bowel sounds mild diffuse tenderness, CDI dressing over drain insertion Musculoskeletal: no edema, pulses present moves both upper limbs, lower extremities not tested Deviation from normal: Oriented to self, not to location or time; flat affect Skin: no rash Dx/Plan - Plan Plan: Severe hypernatremia 2/2 volume depletion, improving -Continue fluid resuscitation -Monitor for fluid overload Bradycardia -down to 40s on tele overnight -will order 12 lead EKG Pre renal PADDY -Serial improvements -Nephrology consulted, appreciate recs Hypokalemia -Continue to replace Abdominal wall abscess vs necrotic tissue -Dr. Sims consulted for evaluation -Currently on renally dosed Zosyn -S/P CT guided 8 Setswana pigtail drain placement on 02/05, small amount of clear/ serous drainage - Cx reveals proteus sensitive to multiple abx; also GNR which appear to be resistant e. coli although this cannot be confirmed by micro until tomorrow; also GPC which is likely enterococcus sensitive to zosyn - will f/u final cx and sensitivity results to adjust abx regimen as appropriate DM2 -Continue lantus, holding meal time Humalog due to poor eating Poor oral intake - consult to dietitian for nutritional assessment NHL -Monitoring H/H Anemia -Monitoring H/H, likely 2/2 chemo, radiation, and NHL -Hemoglobin 8.0 this AM, s/p transfusion yesterday Hypothyroidism -TSH appropriate, continue home levothyroxine 75mcg HTN -Holding coreg and clonidine for now with low BPs HLD -Continue home lovastatin Addendum - Attending - Attending Attestation Date/Time: 02/08/20 1897 I personally evaluated the patient and discussed the management with Dr. Dallas. I agree with the History, Examination, Assessment and Plan documented above with any addition or exceptions noted below. 12 lead show SB with normal intervals and no conduction delay. Tele unremarkable for heart block. continue to monitor and will consider cards consult if worsening. Not on rate meds. Awaiting additional recs from nephro/ gen surg. renal function improving. Will start working on placement.
[2020-02-08] MEDS: Insulin Glargine 14 UNITS in Pre-Filled Syringe 1 EACH SC SCH (08:58)
--- NOTE | 2020-02-08 09:08 | PRG ---
DATE OF SERVICE: 02/08/2020 SUBJECTIVE: Ms. An is a 64-year-old black female, followed up by the Renal Service for her acute kidney injury secondary to prerenal azotemia. IV hydration has been given with improving renal function. In addition, hypernatremia has also improved with fluids. She has undergone a CT scan guided drainage of her intra-abdominal abscess. Surgery is also following. She voices no new complaints today except for decreased appetite. No chest pain or shortness of breath. OBJECTIVE: VITAL SIGNS: Blood pressure 112/55, heart rate 50, respiratory rate 16, temperature 97.3, O2 saturation is 98% on room air. GENERAL: Awake, supine, lethargic, not in overt distress. SKIN: Adequate turgor. HEENT: Slightly pale conjunctivae. Anicteric sclerae. NECK: No neck mass. No carotid bruits. No JVD. CHEST: No deformities. LUNGS: Clear breath sounds. No wheezing. No crackles. HEART: Normal sinus rhythm. No murmur. No gallops. No rubs. ABDOMEN: Globular, soft, occasional mild tenderness on palpation. EXTREMITIES: No edema. No deformities. MEDICATIONS: On February 08, 2020, were reviewed. LABORATORY DATA: On February 08, 2020; white count 2.4, hemoglobin 8. Sodium noted at 143, potassium 3.4, chloride 111, carbon dioxide 22, BUN 35, creatinine 1.52, albumin is 3.0. Calcium is 7.9. ASSESSMENT AND PLAN: 1. Acute kidney injury - secondary to hemodynamically-mediated renal dysfunction. Much improved renal function. The patient has received IV fluids/crystalloids as well as an albumin infusion. Most recent creatinine now is down to 1.5. There is no indication for any dialytic intervention with this patient. 2. Anemia. P.r.n. blood transfusion. 3. Intra-abdominal abscess/fluid-status post drainage by Radiology. Stable. Currently, the patient is also on empiric IV antibiotics. 4. Mild hypokalemia. Continue to observe. 5. Recheck basic metabolic panel and CBC in a.m. Job ID: [id number]
[2020-02-08] MEDS ORDERED: Potassium Chloride 20 MEQ TAB PO SCH (09:30)
[2020-02-08] MEDS: Lactated Ringer's 1,000 ML IV SCH (13:50)
--- NOTE | 2020-02-08 14:45 | PRG ---
DATE OF SERVICE: 02/08/2020 SUBJECTIVE: Alicja An is doing better today. She is more alert, more communicative, and more appropriate. OBJECTIVE: VITAL SIGNS: Temperature 98 degrees, 53 heart rate (chronic bradycardia), respiratory rate 16, blood pressure 99/52. : Rivero catheter in place. LUNGS: Clear to auscultation. CARDIAC: Regular rate and rhythm without murmur or gallop. ABDOMEN: Soft. Bowel sounds present. Mildly tender, but less so than previously. Output from her drain is clear fluid 75 mL, probably mostly saline irrigant, which they are irrigating three times a day. Urine output 2950 mL for 24 hours. LABORATORY DATA: White count 2.4, hemoglobin 8, platelet count 48. Sodium 143, potassium 3.4, carbon dioxide 22, BUN 35, creatinine 1.5, glucose is 140 to 160. ASSESSMENT AND PLAN: Intra-abdominal abscess, status post percutaneous drainage. The percutaneous drain is initially draining tannish brown fluid. It has now become more dilute and saline in appearance. The drain cultures from the peritoneal abscess grew gram-negative rods and Proteus. She is on Zosyn IV. Appropriate for the findings. I expect that when she is discharged home, she will have her percutaneous drain placed. Care facility will need to irrigate this twice a day with saline into the abdominal cavity fluid and drainage. She will be on oral antibiotics most likely Augmentin. Today, we will order a repeat CAT scan with oral contrast and without IV contrast to assess the catheter and upsized the catheter to provide better drainage. The collection probably is loculated. I have spoken with the patient's daughters for the patient's nieces who live in [place]. The patient has a care facility they are working with. Therefore, she will be transferred to provide care for her drain. The family desires that she have a surgeon in the [place] area and have contacted the patient's oncologist and awaiting a call back from him. Perhaps he knows of a general surgeon in [place] to refer to manage the drain or the oncologist can manage the drain. At this point, she is doing well, tolerating her diet. Her acute renal failure has resolved, has a near normal creatinine and BUN, although we will hold off giving her IV contrast on a repeat CAT scan and use oral contrast only. The patient is severely deconditioned and has not been out of bed as the last 2 days when physical therapy has been not, the patient has been busy with procedures and has not been able to participate in therapy. I have asked the nurses today to get her up out of bed 2 to 3 times a day in the chair and remove her Rivero catheter. She should be appropriate for discharge to a care facility in the next 24 to 48 hours. I am currently waiting on outpatient care arrangements from Dr. Barry, Oncology, [place]. Job ID: [id number]
--- NOTE | 2020-02-08 14:52 | CT ---
CT Abdomen Pelvis WO Con History: Abscess Comparison: CT exam February 04, 2020 Findings: Large mass of the left breast measuring up to 4.3 cm. Small bilateral pleural effusions. No subcutaneous pericardial fluid. Drainage catheter within the fluid containing ventral hernia. The fluid collection has minimally decr eased in size although has increased air. Small focus of extraluminal gas near the subhepatic space. There are stones which appear outside the gallbladder lumen abutting the hepatic flexure:. No evidence for bowel obstruction. Large stones within the gallbladder. CBD stent in place. Left-side d intrahepatic biliary gas. No hydronephrosis. No acute osseous abnormality. Degenerative grade 1 L5 over S1 anterolisthesis. Impression: 1. Large 4 cm left breast mass. Nonemergent follow-up diagnostic mammography and ultrasound recommend ed. 2. Small volume gas in the subhepatic space near the gallbladder with extraluminal stones still may r eflect remote bladder rupture. 3. Minimal size decrease of the fluid containing abscess through the ventral hernia which does contai n a pigtail catheter. 4. No evidence for bowel obstruction. 5. No nephroureterolithiasis or hydroureteronephrosis. No secondary evidence of a recently passed sto ne. 6. 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 7. Although limited without intravenous contrast, the previously described hepatic metastatic foci fr om March 2019 are no longer appreciated.
--- NOTE | 2020-02-08 15:49 | SPC ---
Fluoroscopically guided abscess drainage catheter exchange: 02/08/2020 HISTORY: 64-year-old female status post CT-guided drainage of abdominal abscess involving a fluid collection w ithin the large ventral hernia. Poor drainage from the catheter. TECHNIQUE: Signed informed consent obtained. Patient placed supine on table at special procedures suite. The exi sting 8 [place] Rican pigtail drainage catheter was injected with dilute contrast media. This shows distal pigtail loop of the drainage catheter just to the right of midline at the lower abdominal level, with contrast flowing into the far right posterior aspect of the abscess collection. Existing suture was cut. Existing 8 [place] Rican catheter was cut. 0.035 inch angled Glidewire was advanced under intermitt ent fluoroscopy through the existing catheter, and multiple loops of wire were formed throughout the abscess cavity, including far lateral portion. The existing 8 [place]ican catheter was exchanged over the wire for a 10 [place]ican dilator. The dilator was exchanged over the wire for a 10 [place] UreSil general purpose drainage catheter with stylette. The stylet and guidewire were removed as the 10 Fren ch catheter was advanced, such that the pigtail loop was placed at the far lateral recess of that abscess cavity. The new 10 [place]ican catheter was sutured in place, and connected to external drainage b ag via three-way stopcock. An additional approximately 150 mL of opaque yellow-brown purulent fluid was drained with syringe. The new catheter was flushed with 10 mL normal saline. Patient tolerated pr ocedure well. No complications. IMPRESSION: Successful exchange of the 8 [place] Rican abscess drainage catheter for a new 10 [place] Rican general purpose smitha inage catheter.
[2020-02-09] MEDS: Piperacillin/Tazobactam 2.25 GM in Sodium Chloride 0.9% 100 ML IVPB SCH ×2 (02:57→08:50)
[2020-02-09] MEDS: Lactated Ringer's 1,000 ML IV SCH ×2 (03:07→13:29)
[2020-02-09] MEDS: Levothyroxine Sodium 75 MCG TAB PO SCH (05:27)
[2020-02-09 05:50] LABS: ALT (SGPT) 9 U/L (8-55); AST (SGOT) 13 U/L (5-34); Albumin 2.8 g/dL (3.4-4.8); Alkaline Phosphatase 137 U/L (40-110); Anion Gap 13 mmol/L (10-20); BUN (Urea Nitrogen) 27 mg/dL (9.8-20.1); Bilirubin, Total 0.9 mg/dL (0.2-1.2); Calc. Creatinine Clearance 53 mL/min (70-130); Calcium 8.5 mg/dL (7.8-10.44); Carbon Dioxide 23 mmol/L (23-31); Chloride 113 mmol/L (98-107); Estimated GFR-MDRD 53; Globulin 2.3 g/dL (2.4-3.5); Glucose 76 mg/dL (80-115); Potassium 3.8 mmol/L (3.5-5.1); Protein, Total 5.1 g/dL (6.0-8.3); Sodium 145 mmol/L (136-145)
[2020-02-09 05:59] LABS: Anisocytosis SLIGHT = 6-15 cells (100X) (0-5/hpf); Band 43 % (5-11); Eosinophils 3 % (0-10); Hemoglobin 9.2 g/dL (12.0-16.0); Hypochromia SLIGHT = 6-15 cells (100X) (0-5/hpf); Lymphocytes 16 % (21-51); MDiff Complete? YES; Mean Corpuscular HGB CONC 31.7 g/dL (32.0-36.0); Mean Corpuscular Hemoglobin 25.3 pg (27.0-31.0); Mean Corpuscular Volume 79.7 fL (78.0-98.0); Mean Platelet Volume 11.8 fL (7.4-10.4); Metamyelocyte 1 % (0-0); Monocytes 7 % (0-10); Neutrophil 30 % (42-75); Platelet Count 46 thou/uL (130-400); Platelet Morphology Comment Appears Decreased; RBC Distribution Width 19.8 % (11.5-14.5); Red Blood Cell (RBC) Count 3.64 mill/uL (4.20-5.40); White Blood Cell (WBC) Count 3.9 thou/uL (4.8-10.8)
[2020-02-09] MEDS: Insulin Glargine 14 UNITS in Pre-Filled Syringe 1 EACH SC SCH (08:50)
--- NOTE | 2020-02-09 09:03 | PDOC.FM ---
- Subjective Subjective: No acute events overnight. Had drain upsized yesterday. She has no complaints this morning. Denies abdominal pain at rest, only during palpation. Also denies any headache, SOB, chest pain, abnormal BMs. Per nursing, she did have a light brown, runny BM yesterday. Drain putting out muddy brown drainage with enteric odor. - Objective Vital Signs & Weight: Vital Signs (12 hours) Temp Pulse Resp BP BP Pulse Ox 02/09/20 07:53 98.3 F 50 L 15 102/52 L 96 02/09/20 03:49 98.1 F 52 L 19 112/54 L 100 02/08/20 23:58 97.7 F 62 19 99/51 L Weight Admit Weight 67.302 kg Weight 74.928 kg I&O: 02/08/20 02/09/20 02/10/20 06:59 06:59 06:59 Intake Total 3551 1675 Output Total 3025 1315 Balance 526 360 Result Diagrams: 02/09/20 05:19 02/09/20 05:19 EKG Reviewed by me: Yes (tele reviewed, sinus jacob) Phys Exam - Physical Examination Constitutional: NAD HEENT: moist MMs Neck: supple Respiratory: no wheezing, no rales, no rhonchi, clear to auscultation bilateral Cardiovascular: RRR, no significant murmur Gastrointestinal: soft, no distention, positive bowel sounds mild tenderness to palpation, drain in place Musculoskeletal: pulses present mild pedal edema moves upper limbs equally Deviation from normal: oriented to self, year; not oriented to hospital, current events Skin: no rash Dx/Plan - Plan Plan: Severe hypernatremia 2/2 volume depletion, improving -Continue fluid resuscitation -Monitor for fluid overload -Sodium 145, upper limit of normal this AM Bradycardia -HR 50s today -12 lead EKG sinus bradycardia, no evidence of heart block -No events on tele overnight Pre renal PADDY -Serial improvements -Nephrology consulted, appreciate recs Hypokalemia -Continue to replace Abdominal wall abscess vs necrotic tissue -Dr. Sims consulted for evaluation -Currently on renally dosed Zosyn -S/P CT guided 8 Eritrean pigtail drain placement on 02/05, upsized on 02/07; now with brown drainage, enteric odor -Cx reveals E. coli resistant to multiple drugs including ampicillin, many cephalosporins, bactrim, and fluorquinolones. Does appear to be sensitive to zosyn, augmentin. -Cx also with proteus sensitive to many drugs DM2 -Continue lantus, holding meal time Humalog due to poor eating Poor oral intake - consult to dietitian for nutritional assessment NHL -Monitoring H/H Anemia -Monitoring H/H, likely 2/2 chemo, radiation, and NHL -Hemoglobin 9.2 this AM, has been stable over 8 since transfusion Hypothyroidism -TSH appropriate, continue home levothyroxine 75mcg HTN -Holding coreg and clonidine for now with low BPs HLD -Continue home lovastatin Addendum - Attending - Attending Attestation Date/Time: 02/09/20 1251 I personally evaluated the patient and discussed the management with Dr. Dallas. I agree with the History, Examination, Assessment and Plan documented above with any addition or exceptions noted below. switch zosyn to augmentin. Culture sensitive to both. Awaiting surg recs. CM arranging placement. Gen surg coordinating f/u with her oncologist in [place].
--- NOTE | 2020-02-09 12:59 | PRG ---
DATE OF SERVICE: SUBJECTIVE: Alicja An is actually doing better today. She is communicating well. She states that she does not have any pain. She is eating moderately well. OBJECTIVE: VITAL SIGNS: Temperature 98.4 degrees, heart rate 52, blood pressure 119/67. Her drain output is 515 mL for the past 24 hours, increased output since it has been upsized. Urine output is good. LUNGS: Clear to auscultation. CARDIAC: Regular rate and rhythm without murmur or gallop. ABDOMEN: Softer, large ventral hernia noted. It is soft. EXTREMITIES: Unremarkable. LABORATORY DATA: White count 3.9, hemoglobin 9.2. Basic metabolic profile is normal with BUN of 27, creatinine of 1.23. ASSESSMENT AND PLAN: 1. Acute tubular necrosis, improved. Continue hydration per Nephrology. 2. Lymphoma, status post chemo and radiation therapy. 3. Chronic ventral hernia, 5 cm defect, chronically incarcerated hepatic flexure with adjacent infected fluid collection, status post percutaneous drainage and then upsized catheter. Initial placement of drain 02/05 and upsized catheter 02/07. HIDA scan normal, 02/06/2020. Known history of cholelithiasis. Suspect previous gallbladder perforation with gallstone noted in the hernia sac. 4. Deconditioning. Note, the patient is from [place]. The patient's nieces live in [place]. She has previously stayed during her chemotherapy; however, nieces such that she cannot stay with them now and the patient is likely to go to [facility] in [facility] [place]. I have talked with the nieces, I have talked with Dr. Barry [place], her medical oncologist. Dr. Barry has given me a referral to Dr. Vick Monge, . I have talked to Dr. Monge per telephone. He is agreeable to accept her as an outpatient to evaluate her drain and manage it. If the patient does not go home this weekend, then I will see her on Wednesday. Dr. Canales was covering the weekend. Please call if necessary. He will see p.r.n. The patient is discharged home. She should follow up with Dr. Vick Monge outpatient next week for management of her percutaneous drain. Her drain should be flushed twice a day with saline solution 10 mL and to the abscess cavity and drain management with output recorded. The patient has been switched from Zosyn to Augmentin p.o. She should stay on Augmentin p.o. for the next [address] Vick Monge will manage this as an outpatient. The patient is stable for discharge at anytime to [facility] from a surgical standpoint. The patient will need eventually repair for the ventral hernia at the time when she is more stable, reconditioned, electrolytes have normalize, renal function has completely recovered. Repair will be difficult due to recent radiation therapy of lymphoma and recent hernia sac infection. We would recommend making a CD-ROM for her CAT scan reports and hospital records for transfer to [facility] to be available for Dr. Vick Monge to mention Dr. Barry, her oncologist. Job ID: [id number]
[2020-02-09] MEDS: Amoxicillin/Potassium Clav 875 MG TAB PO SCH (21:23)
[2020-02-10 05:17] LABS: ALT (SGPT) 11 U/L (8-55); AST (SGOT) 22 U/L (5-34); Albumin 2.7 g/dL (3.4-4.8); Alkaline Phosphatase 211 U/L (40-110); Anion Gap 11 mmol/L (10-20); BUN (Urea Nitrogen) 23 mg/dL (9.8-20.1); Bilirubin, Total 0.6 mg/dL (0.2-1.2); Calc. Creatinine Clearance 68 mL/min (70-130); Calcium 8.5 mg/dL (7.8-10.44); Carbon Dioxide 23 mmol/L (23-31); Chloride 109 mmol/L (98-107); Estimated GFR-MDRD 70; Globulin 2.4 g/dL (2.4-3.5); Glucose 71 mg/dL (80-115); Potassium 3.5 mmol/L (3.5-5.1); Protein, Total 5.1 g/dL (6.0-8.3); Sodium 139 mmol/L (136-145)
--- NOTE | 2020-02-10 05:39 | PDOC.FM ---
- Objective Vital Signs & Weight: Vital Signs (12 hours) Temp Pulse Resp BP BP Pulse Ox 02/10/20 04:00 97.5 F L 56 L 20 115/86 99 02/10/20 00:31 98 F 61 20 105/57 L 99 02/09/20 21:28 97.9 F 67 16 109/61 100 02/09/20 21:23 100 Weight Admit Weight 67.302 kg Weight 74.928 kg I&O: 02/08/20 02/09/20 02/10/20 06:59 06:59 06:59 Intake Total 3551 1675 Output Total 3025 1315 60 Balance 526 360 -60 Result Diagrams: 02/09/20 05:19 02/10/20 04:52 Phys Exam - Physical Examination Constitutional: NAD HEENT: PERRLA, moist MMs Neck: supple, full ROM Respiratory: no wheezing, no rales, no rhonchi, clear to auscultation bilateral Cardiovascular: no significant murmur bradycardia Gastrointestinal: soft, positive bowel sounds mild tenderness over drain site, brown enteric odor drainage Musculoskeletal: pulses present mild LE edema moves UE bilaterally Deviation from normal: flat affect, oriented to self but not location or current events Skin: no rash Dx/Plan - Plan Plan: Severe hypernatremia 2/2 volume depletion, resolved -s/p slow correction with fluid resuscitation -Continue to monitor electrolytes Bradycardia -HR 50s today -12 lead EKG sinus bradycardia, no evidence of heart block -No events on tele overnight Diarrhea -likely 2/2 antibiotics -C diff negative Pre renal PADDY, resolving -Serial improvements continue -Nephrology consulted, appreciate recs Hypokalemia -Continue to replace Abdominal wall abscess vs necrotic tissue -Dr. Sims consulted for evaluation -S/P CT guided 8 Yoruba pigtail drain placement on 02/05, upsized on 02/07; now with brown drainage, enteric odor -Cx reveals E. coli resistant to multiple drugs including ampicillin, many cephalosporins, bactrim, and fluorquinolones. Does appear to be sensitive to zosyn, augmentin. -Cx also with proteus sensitive to many drugs -Zosyn stopped, now on augmentin DM2 -has had borderline hypoglycemia for a few days -will dc lantus and resume home metformin given PADDY resolution Poor oral intake - consult to dietitian for nutritional assessment NHL -Monitoring H/H Anemia -Monitoring H/H, likely 2/2 chemo, radiation, and NHL -Hemoglobin 9.2 this AM, has been stable over 8 since transfusion Hypothyroidism -TSH appropriate, continue home levothyroxine 75mcg HTN -Holding coreg and clonidine for now with low BPs HLD -Continue home lovastatin Dispo: Stable for discharge, pending approval with [facility] in [place] to be nearer to family, oncologist. Surgery team has arranged drain care for her there.
[2020-02-10] MEDS: Levothyroxine Sodium 75 MCG TAB PO SCH (06:17)
[2020-02-10] MEDS: Lactated Ringer's 1,000 ML IV SCH ×3 (06:17→21:01)
[2020-02-10] MEDS: Amoxicillin/Potassium Clav 875 MG TAB PO SCH ×2 (08:20→21:01)
[2020-02-10 08:24] LABS: Anisocytosis SLIGHT = 6-15 cells (100X) (0-5/hpf); Band 36 % (5-11); Eosinophils 4 % (0-10); Hemoglobin 9.2 g/dL (12.0-16.0); Hypochromia SLIGHT = 6-15 cells (100X) (0-5/hpf); Lymphocytes 25 % (21-51); MDiff Complete? YES; Mean Corpuscular Hemoglobin 25.4 pg (27.0-31.0); Mean Corpuscular Volume 79.4 fL (78.0-98.0); Mean Platelet Volume 8.3 fL (7.4-10.4); Metamyelocyte 2 % (0-0); Neutrophil 33 % (42-75); Nucleated RBC 2 % (0); Platelet Count 57 thou/uL (130-400); Platelet Morphology Comment Appears Decreased; Poikilocytosis SLIGHT = 6-15 cells (100X) (0-5/hpf); RBC Distribution Width 20.3 % (11.5-14.5); Red Blood Cell (RBC) Count 3.61 mill/uL (4.20-5.40); White Blood Cell (WBC) Count 3.6 thou/uL (4.8-10.8)
--- NOTE | 2020-02-10 18:01 | PRG ---
DATE OF SERVICE: 02/10/2020 The patient was seen, evaluated, discussed and examined with the residents at the bedside. Please see Dr. Janessa Dallas's progress note for which I agree. Really no major changes on her overnight. Little bit of diarrhea from the antibiotics, but is stable. Otherwise, electrolytes are looking better and really just waiting on placement for her and continuing antibiotics in the meantime. Job ID: [id number]
--- NOTE | 2020-02-10 18:06 | PRG ---
DATE OF SERVICE: 02/10/2020 Please see the note from Dr. Dallas, for which I agree. The patient was seen, evaluated, discussed, and examined with the residents by bedside. She has done fine overnight or just trying to get her pain controlled. She has elevated troponin, but no symptoms. Bottom line here is family wants her transfer to her transplant doctors in [place] and that is happening this morning, she is stable for transfer and will get a more in-depth level of care in [place]. Job ID: [id number]
[2020-02-10] MEDS: Atorvastatin Calcium 10 MG TAB PO SCH (21:01)
[2020-02-11] MEDS: Levothyroxine Sodium 75 MCG TAB PO SCH (05:52)
--- NOTE | 2020-02-11 05:58 | PDOC.FM ---
- Subjective Subjective: Overnight she was noted to have >500 in her bladder, castellano catheter was placed and about 600mL was drained. Pt denies any new symptoms this AM. No headache, chest pain, abdominal pain, SOB. She has continued to have multiple BMs per day. denies any urinary symptoms. - Objective Vital Signs & Weight: Vital Signs (12 hours) Temp Pulse Resp BP Pulse Ox 02/11/20 03:50 97.6 F 53 L 20 102/57 L 100 02/10/20 23:49 97.8 F 56 L 20 98/54 L 100 02/10/20 19:28 97.7 F 66 20 103/57 L 99 Weight Admit Weight 67.302 kg Weight 74.928 kg I&O: 02/09/20 02/10/20 02/11/20 06:59 06:59 06:59 Intake Total 1675 Output Total 4285 301 7079 Balance 404 -442 -8668 Result Diagrams: 02/10/20 04:52 02/10/20 04:52 EKG Reviewed by me: Yes (tele reviewed: continued sinus bradycardia) Phys Exam - Physical Examination Constitutional: NAD castellano catheter in place HEENT: PERRLA, moist MMs Neck: supple Respiratory: no wheezing, no rales, no rhonchi, clear to auscultation bilateral Cardiovascular: RRR, no significant murmur Gastrointestinal: soft, non-tender, positive bowel sounds drain in place, with brown enteric odor drainage mild non-pitting edema bilateral LE, unchanged moves upper limbs equally Deviation from normal: flat affect, oriented to self but not location or current events Skin: no rash Dx/Plan - Plan Plan: Abdominal wall abscess vs necrotic tissue -Dr. Sims consulted for evaluation -S/P CT guided 8 Bulgarian pigtail drain placement on 02/05, upsized on 02/07; now with brown drainage, enteric odor -Cx reveals E. coli resistant to multiple drugs including ampicillin, many cephalosporins, bactrim, and fluorquinolones. Does appear to be sensitive to zosyn, augmentin. -Cx also with proteus sensitive to many drugs -Zosyn stopped, now on augmentin Urinary retention -over 500ml in bladder overnight, castellano placed -continue to monitor -will check UA today -will likely need urology f/u outpatient Severe hypernatremia 2/2 volume depletion, resolved -s/p slow correction with fluid resuscitation -Continue to monitor electrolytes Bradycardia -HR 50s today -12 lead EKG sinus bradycardia, no evidence of heart block -No events on tele overnight Diarrhea -likely 2/2 antibiotics -C diff negative Pre renal PADDY, resolving -Serial improvements continue -Nephrology consulted, appreciate recs Hypokalemia -Continue to replace DM2 -has had borderline hypoglycemia for a few days -will dc lantus and resume home metformin given PADDY resolution -continue to monitor BS Poor oral intake -dietitian consulted, appreciate recs -continue suplena supplementation NHL -Monitoring H/H Anemia -Monitoring H/H, likely 2/2 chemo, radiation, and NHL -Hemoglobin 9.2 this AM, has been stable over 8 since transfusion Hypothyroidism -TSH appropriate, continue home levothyroxine 75mcg HTN -Holding coreg and clonidine for now with low BPs HLD -Continue home lovastatin Dispo: Stable for discharge, pending approval with [facility] in [place] to be nearer to family, oncologist. Surgery team has arranged drain care for her there.
[2020-02-11] MEDS: metFORMIN 500 MG TAB PO SCH ×2 (08:47→22:35)
[2020-02-11] MEDS: Amoxicillin/Potassium Clav 875 MG TAB PO SCH ×2 (08:47→22:35)
[2020-02-11 09:26] LABS: Band 30 % (5-11); Eosinophils 4 % (0-10); Hemoglobin 8.4 g/dL (12.0-16.0); Lymphocytes 30 % (21-51); MDiff Complete? YES; Mean Corpuscular HGB CONC 32.1 g/dL (32.0-36.0); Mean Corpuscular Hemoglobin 25.5 pg (27.0-31.0); Mean Corpuscular Volume 79.5 fL (78.0-98.0); Mean Platelet Volume 11.6 fL (7.4-10.4); Metamyelocyte 1 % (0-0); Monocytes 1 % (0-10); Neutrophil 34 % (42-75); Platelet Count 85 thou/uL (130-400); Platelet Morphology Comment Appears Decreased; RBC Distribution Width 20.8 % (11.5-14.5); Toxic Granulation SLIGHT; White Blood Cell (WBC) Count 3.8 thou/uL (4.8-10.8)
[2020-02-11 09:27] LABS: ALT (SGPT) 10 U/L (8-55); AST (SGOT) 18 U/L (5-34); Albumin 2.4 g/dL (3.4-4.8); Alkaline Phosphatase 213 U/L (40-110); Anion Gap 9 mmol/L (10-20); BUN (Urea Nitrogen) 16 mg/dL (9.8-20.1); Bilirubin, Total 0.4 mg/dL (0.2-1.2); Calc. Creatinine Clearance 79 mL/min (70-130); Calcium 8.2 mg/dL (7.8-10.44); Carbon Dioxide 24 mmol/L (23-31); Chloride 109 mmol/L (98-107); Estimated GFR-MDRD 83; Globulin 2.3 g/dL (2.4-3.5); Glucose 137 mg/dL (80-115); Potassium 3.4 mmol/L (3.5-5.1); Protein, Total 4.7 g/dL (6.0-8.3); Sodium 139 mmol/L (136-145)
[2020-02-11] MEDS ORDERED: Potassium Chloride 20 MEQ TAB PO SCH (10:34)
[2020-02-11 11:46] LABS: Bacteria/HPF 2+ HPF (None Seen); Bilirubin Negative (Negative); Blood, Urine 1+ (Negative); Clarity Clear (Clear); Glucose, Urine (Dipstick) Normal (Negative); Ketone, Urine Negative (Negative); Leukocyte 250 Leu/uL (Negative); Nitrite Negative (Negative); Protein, Urine (Dipstick) 20 mg/dL (Neg-Trace); Specific Gravity, Urine 1.015 (1.002-1.036); Squamous Epithelial 0-3 HPF (0-3); Urobilinogen Normal mg/dL (Less than 2); pH, Urine 5.5 (5.0-9.0)
[2020-02-11 11:47] LABS: Yeast-Budding 2+ HPF (None Seen)
[2020-02-11] MEDS: Lactated Ringer's 1,000 ML IV SCH (13:56)
--- NOTE | 2020-02-11 16:18 | PRG ---
DATE OF SERVICE: 02/11/2020 Please see the note done by Dr. Hadley and Dr. Dallas, which I agree. The patient was seen, evaluated, discussed, and examined with the residents at bedside. Basically, no major changes on her other than some urinary retention, for which a catheter was placed. Eating fairly well. Diarrhea is less. Has an intraabdominal abscess, that she has drained for. Receiving Augmentin for that. Hypernatremia has resolved. fairly stable and fairly asymptomatic, and other issues including hypertension and hyperlipidemia are all stable and continuing same medications. The plan ultimately is to send her to [facility] snf type facility to be closer to family and case management is working on that and she is cleared medically to go. Job ID: [id number]
[2020-02-11] MEDS: Atorvastatin Calcium 10 MG TAB PO SCH (22:35)
[2020-02-11] MEDS ORDERED: Loperamide HCl 2 MG CAP PO PRN (23:44)
[2020-02-11] MEDS ORDERED: Loperamide HCl 1 MG/7.5 ML UDCUP PO PRN (23:44)
[2020-02-11] MEDS ORDERED: Ampicillin/Sulbactam 3 GM in Sodium Chloride 0.9% 100 ML IVPB SCH (23:59)
[2020-02-12 05:07] LABS: #Eosinphils 0.1 thou/uL (0.0-0.7); #Lymphocytes 0.9 thou/uL (1.20-3.40); #Monocytes 0.3 thou/uL (0.11-0.59); %Basophils 0.3 % (0.0-1.0); %Eosinophils 1.6 % (0.0-10.0); %Lymphocytes 20.9 % (21.0-51.0); %Monocytes 6.8 % (0.0-10.0); %Neutrophils 70.5 % (42.0-75.0); Hemoglobin 8.3 g/dL (12.0-16.0); Mean Corpuscular HGB CONC 31.8 g/dL (32.0-36.0); Mean Corpuscular Hemoglobin 25.7 pg (27.0-31.0); Mean Corpuscular Volume 80.9 fL (78.0-98.0); Mean Platelet Volume 7.3 fL (7.4-10.4); Platelet Count 91 thou/uL (130-400); RBC Distribution Width 21.4 % (11.5-14.5); Red Blood Cell (RBC) Count 3.23 mill/uL (4.20-5.40); White Blood Cell (WBC) Count 4.3 thou/uL (4.8-10.8)
--- NOTE | 2020-02-12 05:09 | PDOC.FM ---
- Subjective Subjective: Pt resting comfortably in bed. Denies SOB, chest pain. Reports minimal abdominal tenderness. - Objective MAR Reviewed: Yes Vital Signs & Weight: Vital Signs (12 hours) Temp Pulse Resp BP BP Pulse Ox 02/12/20 04:54 97.7 F 60 18 97/52 L 100 02/11/20 19:50 98.3 F 66 15 117/64 99 Weight Admit Weight 67.302 kg Weight 74.928 kg I&O: 02/10/20 02/11/20 02/12/20 06:59 06:59 06:59 Intake Total 1530 Output Total 185 1125 340 Balance -185 -1125 1190 Result Diagrams: 02/12/20 04:42 02/12/20 04:42 Phys Exam - Physical Examination Constitutional: NAD HEENT: PERRLA Neck: supple, full ROM Respiratory: no wheezing, no rales, no rhonchi, clear to auscultation bilateral Cardiovascular: RRR, no significant murmur Gastrointestinal: positive bowel sounds Abdominal abscess draining from pigtail drain and other site; malodorous Neurological: non-focal Deviation from normal: Flat affect Skin: no rash Dx/Plan (1) Abdominal abscess Code(s): XPQ0874 - Status: Acute (2) PADDY (acute kidney injury) Code(s): N17.9 - ACUTE KIDNEY FAILURE, UNSPECIFIED Status: Resolved (3) Anemia Code(s): D64.9 - ANEMIA, UNSPECIFIED Status: Chronic (4) HLD (hyperlipidemia) Code(s): E78.5 - HYPERLIPIDEMIA, UNSPECIFIED Status: Chronic (5) HTN (hypertension) Code(s): I10 - ESSENTIAL (PRIMARY) HYPERTENSION Status: Chronic (6) Hypernatremia Code(s): E87.0 - HYPEROSMOLALITY AND HYPERNATREMIA Status: Resolved (7) Hypothyroid Code(s): E03.9 - HYPOTHYROIDISM, UNSPECIFIED Status: Chronic (8) Non-Hodgkin lymphoma Code(s): C85.90 - NON-HODGKIN LYMPHOMA, UNSPECIFIED, UNSPECIFIED SITE Status: Acute (9) Type 2 diabetes mellitus Status: Chronic (10) Volume depletion Code(s): E86.9 - VOLUME DEPLETION, UNSPECIFIED Status: Resolved - Plan Plan: Abdominal wall abscess vs necrotic tissue -New drainage site right of the umbilicus; will consult Dr. Sims regarding his recs -S/P CT pigtail drain placement on 02/05, upsized on 02/07; brown, malodorous drainage -Cx: E. coli sensitive to zosyn, augmentin. -Cx also with proteus sensitive to many drugs -Refused augmentin dose, given one dose of Unasyn; will consider swallow eval Urinary retention -continue to monitor -UA concerning for infections; should be covered by antibiotics mentioned above -Urine Cx sent -possibly urology f/u outpatient Severe hypernatremia 2/2 volume depletion, resolved -s/p slow correction with fluid resuscitation -Monitor electrolytes Bradycardia -HR 50s today -12 lead EKG sinus bradycardia, no evidence of heart block -No events on tele overnight Diarrhea -likely 2/2 antibiotics -C diff negative Pre renal PADDY, resolving -Serial improvements continue -Nephrology consulted, appreciate recs Hypokalemia -Continue to replace DM2 -has had borderline hypoglycemia for a few days -will dc lantus and resume home metformin given PADDY resolution -continue to monitor BS Poor oral intake -s/p dietitian consult, appreciate recs -continue suplena supplementation NHL -Monitoring H/H Anemia -Monitoring H/H, likely 2/2 chemo, radiation, and NHL -s/p transfusion x2 on 02/06 -Hemoglobin 8.3 this AM Hypothyroidism -continue home levothyroxine 75mcg HTN -Holding coreg and clonidine for now with low BPs HLD -Continue home lovastatin Dispo: Pending further evaluation Addendum - Attending - Attending Attestation Date/Time: 02/12/20 1213 I personally evaluated the patient and discussed the management with Dr. Pandya. I agree with the History, Examination, Assessment and Plan documented above with any addition or exceptions noted below. Patient here for issues related with inability to care for herself. She came in profoundly dehydrated and now with abscess growing multiple fecal bacteria. General Surgery on board. She is nearing stability for discharge to SNF facility near [place]. She is refusing PO abx and will have to sort out that issue. Wound care. Sodium levels normal.
[2020-02-12 05:34] LABS: ALT (SGPT) 10 U/L (8-55); AST (SGOT) 17 U/L (5-34); Albumin 2.5 g/dL (3.4-4.8); Alkaline Phosphatase 199 U/L (40-110); Anion Gap 11 mmol/L (10-20); BUN (Urea Nitrogen) 13 mg/dL (9.8-20.1); Bilirubin, Total 0.6 mg/dL (0.2-1.2); Calc. Creatinine Clearance 84 mL/min (70-130); Calcium 8.3 mg/dL (7.8-10.44); Carbon Dioxide 24 mmol/L (23-31); Chloride 110 mmol/L (98-107); Estimated GFR-MDRD 89; Globulin 2.4 g/dL (2.4-3.5); Glucose 82 mg/dL (80-115); Potassium 3.7 mmol/L (3.5-5.1); Protein, Total 4.9 g/dL (6.0-8.3); Sodium 141 mmol/L (136-145)
[2020-02-12] MEDS: Levothyroxine Sodium 75 MCG TAB PO SCH (05:46)
[2020-02-12] MEDS: Lactated Ringer's 1,000 ML IV SCH ×3 (05:46→20:30)
[2020-02-12] MEDS: Amoxicillin/Potassium Clav 875 MG TAB PO SCH ×2 (05:47→10:21)
[2020-02-12] MEDS: metFORMIN 500 MG TAB PO SCH (10:22)
[2020-02-12] MEDS ORDERED: PROPOFOL 200 MG/20 ML VIAL ONE (11:54)
[2020-02-12] MEDS ORDERED: Rocuronium Bromide 10 MG/ML (10ML VIAL) ONE (11:54)
[2020-02-12] MEDS ORDERED: PHENYLEPHRINE-NS 100 MCG/ML 10 ML SYRINGE ONE (11:54)
[2020-02-12] MEDS ORDERED: Lidocaine 1% PF 5 ML VIAL ONE (11:54)
[2020-02-12] MEDS ORDERED: Vecuronium 10 MG VIAL ONE (11:54)
--- NOTE | 2020-02-12 12:03 | PRG ---
DATE OF SERVICE: 02/12/2020 SUBJECTIVE: Alicja An is stable. She denies any pain. She is not eating much, 97.6 degrees, heart rate 53, 109/56. This morning, her white count is 4 and hemoglobin 8.3. Basic metabolic profile is normal. BUN 13 and creatinine 0.78. Sodium 147 and potassium 3.7. Her CT-guided drain, which . Cultures revealed E coli, Proteus, Enterococcus, consists of the enteric contaminant. Her CT-guided drain exits her left upper quadrant. She has developed wound over her right upper abdomen to the right of midline, right subcostal, draining enteric foul-smelling material. PHYSICAL EXAMINATION: LUNGS: Clear to auscultation. CARDIAC: Regular rate and rhythm. No murmur or gallop. ABDOMEN: Soft, plus bowel sounds. Repeat CAT scan has been ordered. ASSESSMENT AND PLAN: Lymphoma, status post chemotherapy with CHOP six cycles and completed radiation therapy about four weeks ago, has a longstanding chronic ventral hernia supraumbilical containing hepatic flexure colon and fluid. She has a biliary stent. HIDA scan in this hospitalization revealed patent biliary tree, visualization of the gallbladder without leakage. The patient has developed enterocutaneous fistula despite CT-guided drainage and upsizing of the drain. At this point, we would recommend laparotomy, drainage of the fluid versus local drainage with wound VAC application, I would prefer the latter. This will help evacuate the fluid and perhaps the hernia can be addressed at a later time. 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 Depend on operative findings, she may need laparotomy, colon resection, and colostomy, and come back to reverse this repair of the hernia later time versus temporary closure. Job ID: [id number]
--- NOTE | 2020-02-12 12:22 | CT ---
CT abdomen and pelvis with IV contrast HISTORY:. Drainage from ventral hernia abscess. COMPARISON: 02/08/2020. FINDINGS: Small amount of bilateral pleural fluid is again demonstrated. Large mass of the left breas t is similar in appearance to the previous exam. TIPS stent in place. Hyperdense stones of the gallbladder fossa and extending inferiorly to the subhe patic space are similar in appearance to the prior study with small amount of adjacent gas. Small amount of pneumobilia also apparent. There is a very subtle wedge-shaped area of decreased density at the lateral right liver lobe dome. Possibly a small infarct or mass. Tiny cysts of the kidneys. Urinary bladder is decompressed by Rivero catheter and contains small amount of intraluminal gas. At the far anterior margin of the spleen is a very small 1.6 cm rounded fluid collection with periphe ral enhancement. The large right abdominal ventral hernia is slightly smaller than on the most recent exam. It now donald sures up to 20.7 cm greatest oblique width by 7.6 cm depth. Percutaneous drain has been pulled back since its placement 4 days ago, although the loop remains within the abscess, so that it should be dr block. The large skin defect over the abscess at the right lower quadrant has become more pronounced, with f luid on the surface of the skin. There is a 1.2 cm hyperdense stone in the dependent portion of the ventral hernia abscess. IMPRESSION : While the large abscess associated with the right ventral abdominal wall hernia has decreased slightl y in size, there is now a large area of skin defect over the superficial surface with fluid on the skin surface, correlating with the clinical findings of external rupture. Catheter has been pulled ba ck slightly but remains within the abscess cavity. The small calcification within the ventral hernia abscess is likely related to the ruptured gallbladd er. Additional stones and small amount of gas remain immediately inferior to the liver. Large left breast mass again demonstrated. Small bilateral pleural effusions.
[2020-02-12] MEDS ORDERED: Sodium Chloride 0.9% 10 ML ONE ×2 (15:54→16:28)
[2020-02-12] MEDS ORDERED: Lidocaine 1% w/Epinephrine 1:100K 20 ML VIAL ONE (16:27)
[2020-02-12] MEDS ORDERED: Bupivacaine PF 0.5% 30 ML VIAL ONE (16:27)
[2020-02-12] MEDS ORDERED: SUGAMMADEX SODIUM 500 MG/5 ML VIAL ONE (16:32)
[2020-02-12] MEDS ORDERED: Fentanyl 250 MCG/5 ML VIAL ONE (16:32)
--- NOTE | 2020-02-12 16:53 | CON ---
DATE OF CONSULTATION: 02/12/2020 CONSULTING PHYSICIAN: Demarco Sims MD REASON FOR CONSULTATION: Probable need for postop ventilation. HISTORY OF PRESENT ILLNESS: Ms. An is a 64-year-old female, who has been found to have a colocutaneous fistula, that has been taken to the OR. It is anticipated that she will need postoperative mechanical ventilation. The patient does not give me much in the way of history. PAST MEDICAL HISTORY: 1. Diabetes mellitus. 2. Hypertension. 3. Lymphoma. PAST SURGICAL HISTORY: 1. Hysterectomy. 2. Bilateral salpingo-oophorectomy. 3. MediPort placement. REVIEW OF SYSTEMS: The patient does not speak much and will not give me any answers. MEDICATIONS: Reviewed. See chart. ALLERGIES: NONE. PHYSICAL EXAMINATION: VITAL SIGNS: Temperature 96.4, pulse 60, respirations 18, O2 saturations 99%, and blood pressure 94/52. GENERAL: She smells like stool. HEENT: Unremarkable. NECK: No adenopathy or JVD. CHEST: Clear to auscultation. CARDIAC: S1 and S2, regular. ABDOMEN: Slightly distended. She has a bandage over her right lower quadrant. No tenderness. EXTREMITIES: No edema. LABORATORY DATA: White blood cell count 4.3, hematocrit 26.1, and platelet count 91. Sodium 141, potassium 3.7, chloride 110, CO2 of 24, BUN 13, creatinine 0.7, and glucose 82. COVID test is negative. ASSESSMENT: 1. Colocutaneous fistula. 2. History of lymphoma. PLAN: The patient will be followed postop in case she needs mechanical ventilation. Further disposition to follow. Job ID: [id number]
[2020-02-12] MEDS ORDERED: Ketamine 50 MG/ML (10ML VIAL) ONE (17:09)
[2020-02-12] MEDS ORDERED: Piperacillin/Tazobactam 3.375 GM VIAL ONE (17:17)
[2020-02-12] MEDS ORDERED: Dextrose 5% in Water 1,000 ML IV PRN (19:38)
[2020-02-12] MEDS ORDERED: Dextrose 50% Abboject 50 ML SYRINGE SLOW IVP PRN (19:38)
[2020-02-12] MEDS ORDERED: Ventilator Sedation Protocol 1 EACH FS SCH (19:45)
[2020-02-12 20:10] LABS: Actual Bicarbonate (HCO3a) 21.6 mEq/L (22-28); Base Excess (BEa) -1.7 mEq/L (-2.0 to +3.0); CO2 Tension 31.6 mmHg (35.0-45.0); Calcium, Ionized (arterial) 1.17 mmol/L (1.12-1.30); Carboxyhemoglobin (COHb) 0.3 gm% (0.0-3.0); Hemoglobin (Hb) 11.2 g/dL (12.0-16.0); O2 Tension (PaO2), arterial 140.7 mmHg (> 80.0); pH, Arterial 7.45 (7.35-7.45)
[2020-02-12 20:14] LABS: Puncture Site RRAD
[2020-02-12] MEDS ORDERED: Morphine 2 MG/ML VIAL SLOW IVP PRN (20:24)
[2020-02-12] MEDS ORDERED: Propofol 1,000 MG/100 ML VIAL IV PRN (20:24)
[2020-02-12] MEDS ORDERED: Lorazepam 2 MG/ML VIAL SLOW IVP PRN (20:24)
[2020-02-12] MEDS ORDERED: fentaNYL Citrate/PF 2,000 MCG in Sodium Chloride 0.9% 60 ML IV SCH (20:24)
[2020-02-12] MEDS ORDERED: Fentanyl BOLUS 250 ML IVPB PRN (20:24)
[2020-02-12] MEDS ORDERED: DISCONTINUE PREVIOUS NARCOTIC PAIN MEDICATIONS AND BENZODIAZEPINES FS SCH (20:24)
[2020-02-12] MEDS ORDERED: Propofol BOLUS 1,000 MG/100 ML VIAL IV PRN (20:24)
--- NOTE | 2020-02-12 20:25 | RAD ---
CHEST ONE VIEW PORTABLE: History: Respiratory insufficiency Comparison: 02-05-2020 FINDINGS: Endotracheal tube within 1 cm of the hood in the distal trachea. Right central line and injection p ort. Heart size is within normal limits. No confluent pneumonia, overt edema or pleural effusion. IMPRESSION: Endotracheal tube placed with the tip in the distal trachea approximately 1 cm from the hood. POS: RRE
[2020-02-12] MEDS: Atorvastatin Calcium 10 MG TAB PO SCH (20:35)
[2020-02-12] MEDS: Albuterol Sulfate 2.5 mg/0.5 ml Neb NEB SCH (22:10)
[2020-02-12] MEDS: Piperacillin/Tazobactam 4.5 GM in Sodium Chloride 0.9% 100 ML IVPB SCH (23:02)
--- NOTE | 2020-02-13 01:39 | OP ---
DATE OF PROCEDURE: 02/12/2020 PREOPERATIVE DIAGNOSES: Morbid obesity, incarcerated ventral hernia, abdominal wall abscess, lymphoma, status post chemotherapy, status post radiation therapy, hepatic abdominal wall, poor IV access, persistent anemia, postoperative adhesions. PROCEDURES: Drainage of abdominal wall abscess, adhesiolysis, small-bowel resection, and primary small-bowel anastomosis (inherent to the procedure due to adhesions and severe inflammatory changes), complex closure of chronic ventral hernia without mesh, application of abdominal wound VAC to the skin and subcutaneous tissue, excision of skin and subcutaneous tissue sharply due to thinned out skin, radiation changes, and abscess, and placement of left subclavian vein central line. ANESTHESIA: General anesthesia. BLOOD TRANSFUSION: 2 units of blood transfused. DISPOSITION: The patient left on the vent, to the ICU. DESCRIPTION OF PROCEDURE: The patient was taken to the operating room, where under general anesthesia, Rivero catheter was placed. Abdomen was prepared with ChloraPrep and Betadine, draped in routine fashion. The patient had a previously placed percutaneous catheter by CAT scan into the abdominal wall abscess. She had a spontaneous opening in the right subcostal area. This was opened prior to prepping purulent material out to facilitate prep. Once abdomen was prepared with Betadine and draped in routine fashion, incision was made midline, carried down to skin and subcutaneous tissue, entering the abdominal wall abscess, which was within the peritoneal sac. This peritoneal sac was carefully dissected free. Colon was identified, dissected free, and reduced to the abdominal cavity. Hernia sac line, which was very thick and chronic, was dissected free from the subcutaneous tissue down to the fascial edges. Adhesiolysis was carried out freeing the small bowel from the abdominal wall inferiorly suffering enterotomy, requiring resection of the torn segment of small bowel, dividing the mesentery with the LigaSure, and excising the segment of small bowel, and then prior to performing a [id number] anastomosis with HEIDI 75 stapler technique, closing the common enterostomy with another fire of the stapler, closing the defect and mesentery with 3-0 and 2-0 silk. The small bowel was inspected closely. It was then reduced in the abdominal cavity. Sponge and needle counts were correct. I had adequate fascia for closure. I debrided necrotic hernia sac, which was difficult to discern due to the chronic nature of this problem. Once the fascial edges were identified, the fascia was approximated with a combination of interrupted and continuous suture of #1 PDS. Internal retention sutures of #1 PDS were used. Skin and subcutaneous tissues were irrigated. Her thickened hernia sac was resected, thinned out skin was resected and discarded. Once good hemostasis had been obtained, abdominal wound VAC was applied to the skin and subcutaneous tissue. The patient left intubated, transferred to the ICU on the ventilator. Job ID: [id number]
[2020-02-13] MEDS: Albuterol Sulfate 2.5 mg/0.5 ml Neb NEB SCH ×6 (02:25→23:31)
[2020-02-13] MEDS: Lactated Ringer's 1,000 ML IV SCH ×5 (03:13→19:06)
[2020-02-13 04:03] LABS: ALT (SGPT) 12 U/L (8-55); AST (SGOT) 15 U/L (5-34); Albumin 2.5 g/dL (3.4-4.8); Alkaline Phosphatase 159 U/L (40-110); Anion Gap 12 mmol/L (10-20); BUN (Urea Nitrogen) 13 mg/dL (9.8-20.1); Bilirubin, Total 0.7 mg/dL (0.2-1.2); Calc. Creatinine Clearance 76 mL/min (70-130); Calcium 8.3 mg/dL (7.8-10.44); Carbon Dioxide 24 mmol/L (23-31); Chloride 108 mmol/L (98-107); Estimated GFR-MDRD 80; Globulin 2.5 g/dL (2.4-3.5); Glucose 206 mg/dL (80-115); Magnesium 1.5 mg/dL (1.6-2.6); Phosphorus 4.7 mg/dL (2.3-4.7); Potassium 3.8 mmol/L (3.5-5.1); Sodium 140 mmol/L (136-145)
[2020-02-13 04:29] LABS: #Lymphocytes 0.5 thou/uL (1.20-3.40); #Monocytes 0.1 thou/uL (0.11-0.59); %Lymphocytes 4.7 % (21.0-51.0); %Monocytes 1.4 % (0.0-10.0); %Neutrophils 93.9 % (42.0-75.0); Band 21 % (5-11); Lymphocytes 19 % (21-51); MDiff Complete? YES; Mean Platelet Volume 7.8 fL (7.4-10.4); Monocytes 4 % (0-10); Neutrophil 56 % (42-75); Platelet Count 114 thou/uL (130-400); Platelet Morphology Comment Appears Decreased; RBC Distribution Width 18.7 % (11.5-14.5); Red Blood Cell (RBC) Count 4.08 mill/uL (4.20-5.40); White Blood Cell (WBC) Count 9.6 thou/uL (4.8-10.8)
[2020-02-13] MEDS: Piperacillin/Tazobactam 4.5 GM in Sodium Chloride 0.9% 100 ML IVPB SCH ×4 (05:17→23:21)
[2020-02-13] MEDS: HumaLOG 300 UNITS/3 ML VIAL SC PRN ×2 (05:17→10:05)
--- NOTE | 2020-02-13 05:57 | PDOC.FM ---
- Subjective Subjective: Pt went back for laparotomy last night, admitted to ICU intubated after sx. No issues overnight. Pt was intubated on exam but was able to nod yes or no. Expresses that she wants to be extubated. Denies pain. - Objective MAR Reviewed: Yes Vital Signs & Weight: Vital Signs (12 hours) Temp Pulse Resp BP Pulse Ox 02/13/20 04:00 98.0 F 11 L 02/13/20 02:25 79 120/76 02/13/20 02:00 10 L 02/13/20 00:00 97.7 F 15 02/12/20 22:10 88 10 L 100 02/12/20 22:09 89 02/12/20 22:00 10 L 02/12/20 20:00 97.7 F 10 L 100 02/12/20 19:37 68 112/68 Weight Admit Weight 67.302 kg Weight 74.928 kg Most Recent Monitor Data Heart Rate from ECG 71 NIBP 133/83 NIBP BP-Mean 99 Respiration from ECG 20 SpO2 100 I&O: 02/11/20 02/12/20 02/13/20 06:59 06:59 06:59 Intake Total 1530 Output Total 1125 390 315 Balance -1125 1140 -315 Result Diagrams: 02/13/20 03:21 02/13/20 03:21 Phys Exam - Physical Examination Intubated, restrained HEENT: PERRLA, moist MMs, sclera anicteric Respiratory: no wheezing, no rales, no rhonchi, clear to auscultation bilateral Cardiovascular: RRR, no significant murmur, no rub Gastrointestinal: soft, no distention Appropriately tender Musculoskeletal: no edema Skin: no rash Dx/Plan (1) Abdominal abscess Code(s): [id number] - Status: Acute (2) PADDY (acute kidney injury) Code(s): N17.9 - ACUTE KIDNEY FAILURE, UNSPECIFIED Status: Resolved (3) Anemia Code(s): D64.9 - ANEMIA, UNSPECIFIED Status: Chronic (4) HLD (hyperlipidemia) Code(s): E78.5 - HYPERLIPIDEMIA, UNSPECIFIED Status: Chronic (5) HTN (hypertension) Code(s): I10 - ESSENTIAL (PRIMARY) HYPERTENSION Status: Chronic (6) Hypernatremia Code(s): E87.0 - HYPEROSMOLALITY AND HYPERNATREMIA Status: Resolved (7) Hypothyroid Code(s): E03.9 - HYPOTHYROIDISM, UNSPECIFIED Status: Chronic (8) Non-Hodgkin lymphoma Code(s): C85.90 - NON-HODGKIN LYMPHOMA, UNSPECIFIED, UNSPECIFIED SITE Status: Acute (9) Type 2 diabetes mellitus Status: Chronic (10) Volume depletion Code(s): E86.9 - VOLUME DEPLETION, UNSPECIFIED Status: Resolved - Plan Plan: Abdominal wall abscess -Dr. Sims took the pt back to the OR yesterday evening for laparotomy; left intubated and transferred to ICU; plans for extubation this morning -Started on Zosyn per Dr. Sims -will follow Dr. Sims's recs; appreciate his help Urinary retention -castellano in place -UA concerning for infections; should be covered by antibiotics mentioned above -Urine Cx sent, no growth to date -f/u urology outpt Severe hypernatremia 2/2 volume depletion, resolved -s/p slow correction with fluid resuscitation -Monitor electrolytes, 1gm mag given today Bradycardia -HR in 70s and 80s -will monitor Diarrhea -likely 2/2 antibiotics -C diff negative Pre renal PADDY, resolved -Serial improvements continue -Nephrology consulted, appreciate recs Hypokalemia, resolved -will monitor DM2 -borderline hypoglycemia prior to recent surgery -home metformin being held -SSI in place with hypoglycemia protocol Poor oral intake -s/p dietitian consult, appreciate recs -suplena supplementation NHL -Monitoring H/H Anemia -Monitoring H/H -transfusion x2 on 02/06 and x2 on 02/11 during surgery -Hemoglobin 11.0 this AM Hypothyroidism -home levothyroxine currently being held HTN -Holding coreg and clonidine; normotensive HLD -Continue home lovastatin Dispo: pending recs from Dr. Sims and placement approval Lines: L subclavian central line, L chest mediport PPx: Protonix, DVT ppx 24hrs post op Diet: NPO, sips of water with meds Fluids: 135 ml/hr LR Addendum - Attending - Attending Attestation Date/Time: 02/13/20 6089 I personally evaluated the patient and discussed the management with Dr. Pandya. I agree with the History, Examination, Assessment and Plan documented above with any addition or exceptions noted below. Patient doing well s/p extubation. Surgery is managing her post-op status. Continue IV abx. Placement once she is stable for discharge.
[2020-02-13] MEDS ORDERED: Magnesium 2 GM/50 ML 1 GM in Premix Bag 1 BAG IVPB SCH (06:30)
[2020-02-13] MEDS ORDERED: DC Sedation Protocol FS ONE (07:14)
--- NOTE | 2020-02-13 07:54 | RAD ---
EXAM: Single view of the chest HISTORY: Ventilated patient with respiratory failure COMPARISON: 02/12/2020 FINDINGS: Single view of the chest shows a normal sized cardiomediastinal silhouette. The lines and tubes are unchanged in position. There is no evidence of consolidation, mass, or pleural effusion. The bones are unremarkable IMPRESSION: No evidence of acute cardiopulmonary disease
--- NOTE | 2020-02-13 07:56 | PRG ---
DATE OF SERVICE: 02/13/2020 35 minutes of critical care time. SUBJECTIVE: The patient remains intubated after laparotomy yesterday. She is doing well and indicates she wants the breathing tube removed. OBJECTIVE: VITAL SIGNS: Temperature 98.0, pulse 75, blood pressure 100/61, O2 sats 99%. Intake 1338, output 695. HEENT: Unremarkable. NECK: No adenopathy or JVD. CHEST: Clear to auscultation. CARDIAC: S1 and S2. Regular. ABDOMEN: Soft and nontender to palpation. Surgical wound noted. EXTREMITIES: No clubbing, cyanosis, or edema. LABORATORY DATA: White blood cell count 9.6, hematocrit 33.5, and platelet count 114. A pH 7.45, pCO2 of 31, pO2 of 140. Sodium 140, potassium 3.8, chloride 108, CO2 of 24, BUN 13, creatinine 0.8, and glucose 206. X-ray shows no mass, effusion, or infiltrate. ASSESSMENT: 1. Postoperative ventilation-clinically stable. 2. Status post laparotomy for repair of colocutaneous fistula. 3. Status post abscess drainage catheter placement. PLAN: Extubation and observation. Job ID: [id number]
[2020-02-13] MEDS: Pantoprazole 40 MG VIAL IVP SCH (09:40)
--- NOTE | 2020-02-13 16:13 | PRG ---
DATE OF SERVICE: 02/13/2020 SUBJECTIVE: Alicja An is doing well today. She was extubated this morning. She is in ICU. Plan is to transfer to the surgical floor today. OBJECTIVE: VITAL SIGNS: Heart rate 75, blood pressure 134/72. The patient's urine output is acceptable. Her gastric drainage is 350. LUNGS: Clear to auscultation. CARDIAC: Regular rate and rhythm without murmur or gallop. ABDOMEN: Soft. Wound VAC is in place. EXTREMITIES: Unremarkable. LABORATORY DATA: White count 9 and hemoglobin 11. Basic metabolic profile normal. ASSESSMENT AND PLAN: The patient is doing well postoperatively. We can transfer her to the surgical floor. If she removes the nasogastric tube, we can leave it out. Continue sips and chips for now. Increase activity. Discharge planning, nursing home versus a long-term acute care per casework specialist. Continue n.p.o. for now. Remove the nasogastric tube if it comes out. Job ID: [id number]
[2020-02-13] MEDS: Atorvastatin Calcium 10 MG TAB PO SCH (19:52)
[2020-02-14] MEDS: Lactated Ringer's 1,000 ML IV SCH ×5 (01:08→23:16)
[2020-02-14] MEDS: Albuterol Sulfate 2.5 mg/0.5 ml Neb NEB SCH ×5 (03:17→19:12)
[2020-02-14] MEDS: Piperacillin/Tazobactam 4.5 GM in Sodium Chloride 0.9% 100 ML IVPB SCH ×3 (04:48→17:27)
--- NOTE | 2020-02-14 05:06 | PDOC.FM ---
- Subjective Subjective: Resting comfortably; Denies pain. Slept through the night per the nurses - Objective MAR Reviewed: Yes Vital Signs & Weight: Vital Signs (12 hours) Temp Pulse Resp BP BP Pulse Ox 02/14/20 03:53 98.1 F 76 18 118/59 L 100 02/14/20 03:18 96 02/14/20 03:17 96 02/13/20 23:31 97.7 F 76 18 125/77 100 02/13/20 20:00 99 02/13/20 19:18 97.5 F L 69 18 125/78 99 02/13/20 19:02 98 02/13/20 19:01 20 98 02/13/20 17:15 96 Weight Admit Weight 67.302 kg Weight 74.928 kg Most Recent Monitor Data Heart Rate from ECG 73 NIBP 140/80 NIBP BP-Mean 78 Respiration from ECG 21 SpO2 99 I&O: 02/12/20 02/13/20 02/14/20 06:59 06:59 06:59 Intake Total 1530 1338.9 1484 Output Total 390 695 695 Balance 1140 643.9 789 Result Diagrams: 02/14/20 05:40 02/14/20 05:40 Phys Exam - Physical Examination Constitutional: NAD HEENT: PERRLA, moist MMs Neck: supple, full ROM Respiratory: no wheezing, no rales, no rhonchi Cardiovascular: RRR, no significant murmur, no rub Gastrointestinal: soft, non-tender Tender to palpation Musculoskeletal: no edema Deviation from normal: Flat affect, AAOx2 Skin: no rash Dx/Plan (1) Abdominal abscess Code(s): [id number] - Status: Acute (2) PADDY (acute kidney injury) Code(s): N17.9 - ACUTE KIDNEY FAILURE, UNSPECIFIED Status: Resolved (3) Anemia Code(s): D64.9 - ANEMIA, UNSPECIFIED Status: Chronic (4) HLD (hyperlipidemia) Code(s): E78.5 - HYPERLIPIDEMIA, UNSPECIFIED Status: Chronic (5) HTN (hypertension) Code(s): I10 - ESSENTIAL (PRIMARY) HYPERTENSION Status: Chronic (6) Hypernatremia Code(s): E87.0 - HYPEROSMOLALITY AND HYPERNATREMIA Status: Resolved (7) Hypothyroid Code(s): E03.9 - HYPOTHYROIDISM, UNSPECIFIED Status: Chronic (8) Non-Hodgkin lymphoma Code(s): C85.90 - NON-HODGKIN LYMPHOMA, UNSPECIFIED, UNSPECIFIED SITE Status: Acute (9) Type 2 diabetes mellitus Status: Chronic (10) Volume depletion Code(s): E86.9 - VOLUME DEPLETION, UNSPECIFIED Status: Resolved - Plan Plan: Abdominal wall abscess -laparotomy on 02/11; extubated on 02/12 -On Zosyn per Dr. Sims -will follow Dr. Sims's recs; appreciate his help -consider Flagyl for better anaerobic coverage -WBC 4 > 9.6 > 11.4; possibly 2/2 to operation; afebrile; continue to monitor Urinary retention -castellano in place -Urine Cx concerning for yeast species, starting fluconazole -f/u urology outpt Severe hypernatremia 2/2 volume depletion, resolved -s/p slow correction with fluid resuscitation -Monitor electrolytes Bradycardia, resolved -HR in 70s and 80s -will monitor Diarrhea -likely 2/2 antibiotics -C diff negative Pre renal PADDY, resolved -Serial improvements continue -Nephrology consulted, appreciate recs Hypokalemia, resolved -will monitor DM2 -borderline hypoglycemia prior to recent surgery -home metformin being held -SSI in place with hypoglycemia protocol Poor oral intake -s/p dietitian consult, appreciate recs -suplena supplementation NHL -Monitoring H/H Anemia -Monitoring H/H -transfusion x2 on 02/06 and x2 on 02/11 during surgery -Hemoglobin 11.0 yesterday, 9 today; asymptomatic Hypothyroidism -home levothyroxine currently being held HTN -Holding coreg and clonidine; normotensive HLD -Continue home lovastatin Dispo: pending recs from Dr. Sims and placement approval Lines: L subclavian central line, L chest mediport PPx: Protonix, DVT ppx 24hrs post op Diet: NPO, sips of water with meds Fluids: 135 ml/hr LR Addendum - Attending - Attending Attestation Date/Time: 02/14/20 1216 I personally evaluated the patient and discussed the management with Dr. Pandya. I agree with the History, Examination, Assessment and Plan documented above with any addition or exceptions noted below. Patient stable. Awaiting further surgical recommendations and hopeful nearing discharge to SNF to which she has been accepted.
[2020-02-14 06:07] LABS: #Eosinphils 0.1 thou/uL (0.0-0.7); #Lymphocytes 0.9 thou/uL (1.20-3.40); #Monocytes 0.4 thou/uL (0.11-0.59); %Basophils 0.2 % (0.0-1.0); %Eosinophils 0.6 % (0.0-10.0); %Lymphocytes 8.1 % (21.0-51.0); %Monocytes 3.1 % (0.0-10.0); Mean Corpuscular Hemoglobin 27.1 pg (27.0-31.0); Mean Corpuscular Volume 84.7 fL (78.0-98.0); Mean Platelet Volume 7.2 fL (7.4-10.4); Platelet Count 129 thou/uL (130-400); RBC Distribution Width 19.5 % (11.5-14.5); Red Blood Cell (RBC) Count 3.33 mill/uL (4.20-5.40); White Blood Cell (WBC) Count 11.4 thou/uL (4.8-10.8)
[2020-02-14 06:21] LABS: ALT (SGPT) 9 U/L (8-55); AST (SGOT) 11 U/L (5-34); Albumin 2.4 g/dL (3.4-4.8); Alkaline Phosphatase 129 U/L (40-110); Anion Gap 13 mmol/L (10-20); BUN (Urea Nitrogen) 12 mg/dL (9.8-20.1); Bilirubin, Total 0.6 mg/dL (0.2-1.2); Calc. Creatinine Clearance 77 mL/min (70-130); Calcium 8.1 mg/dL (7.8-10.44); Carbon Dioxide 24 mmol/L (23-31); Chloride 109 mmol/L (98-107); Estimated GFR-MDRD 81; Globulin 2.2 g/dL (2.4-3.5); Glucose 107 mg/dL (80-115); Potassium 3.7 mmol/L (3.5-5.1); Protein, Total 4.6 g/dL (6.0-8.3); Sodium 142 mmol/L (136-145)
[2020-02-14] MEDS: Pantoprazole 40 MG VIAL IVP SCH (08:42)
[2020-02-14] MEDS ORDERED: Fluconazole 100 MG TAB PO SCH (10:30)
[2020-02-14] MEDS ORDERED: Acetaminophen 500 MG TAB PO PRN (15:05)
[2020-02-14] MEDS ORDERED: Ibuprofen 600 MG TAB PO PRN (15:05)
[2020-02-14] MEDS ORDERED: traMADol HCl 50 MG TAB PO PRN (15:05)
--- NOTE | 2020-02-14 15:21 | PRG ---
DATE OF SERVICE: 02/14/2020 SUBJECTIVE: Alicja An is doing well today. NG tube has been removed. The patient is overall doing well. She states she is doing fine. Her pain is under good control. OBJECTIVE: VITAL SIGNS: Temperature 97.5 degrees, heart rate 75, blood pressure 113/63. LUNGS: Clear to auscultation. CARDIAC: Regular rate and rhythm. ABDOMEN: Soft. Bowel sounds present. Wound VAC present. Wound Care today changed the wound VAC. I was not able to view the wound, but I am told the wound looked good and the fascia was intact. LABORATORY DATA: This morning, her white count is 11 and hemoglobin is 9. Basic metabolic profile is normal. Renal function is normal. BUN 12 and creatinine 0.85. ASSESSMENT/PLAN: 1. The patient is doing well. Acute renal failure has resolved to normal renal function. 2. Abdominal wall abscess, incarcerated hernia repaired, abscess drained, wound VAC and skin and subcutaneous tissues. 3. Postoperative NG tube has been removed and advanced her to clear liquids today and full liquids tomorrow, and anticipate she will be ready to discharge home later in the week to a care facility. Job ID: [id number]
[2020-02-14] MEDS ORDERED: Sodium Chloride 0.9% 15 ML NEB ONE (18:32)
[2020-02-14] MEDS: Atorvastatin Calcium 10 MG TAB PO SCH (21:45)
[2020-02-15] MEDS: Albuterol Sulfate 2.5 mg/0.5 ml Neb NEB SCH ×3 (00:22→06:46)
[2020-02-15] MEDS: Piperacillin/Tazobactam 4.5 GM in Sodium Chloride 0.9% 100 ML IVPB SCH ×3 (00:39→12:35)
[2020-02-15] MEDS: Levothyroxine Sodium 75 MCG TAB PO SCH (06:00)
--- NOTE | 2020-02-15 06:06 | PDOC.FM ---
- Subjective Subjective: Pt denies pain. Reports tolerating PO. Pt is looking forward to her transfer. - Objective MAR Reviewed: Yes Vital Signs & Weight: Vital Signs (12 hours) Temp Pulse Resp BP Pulse Ox 02/15/20 04:13 97.9 F 69 17 165/80 H 98 02/15/20 03:19 97 02/15/20 00:22 97 02/14/20 23:22 98.5 F 64 17 144/75 H 100 02/14/20 20:08 98.0 F 63 16 129/83 100 02/14/20 19:13 98 02/14/20 19:12 98 Weight Admit Weight 67.302 kg Weight 74.928 kg Most Recent Monitor Data Heart Rate from ECG 73 NIBP 140/80 NIBP BP-Mean 78 Respiration from ECG 21 SpO2 99 I&O: 02/13/20 02/14/20 02/15/20 06:59 06:59 06:59 Intake Total 1338.9 1484 Output Total 695 695 900 Balance 643.9 789 -900 Result Diagrams: 02/15/20 06:54 02/15/20 06:54 Phys Exam - Physical Examination Constitutional: NAD HEENT: PERRLA, moist MMs Neck: supple, full ROM Respiratory: no wheezing, no rales, no rhonchi, clear to auscultation bilateral Cardiovascular: RRR, no significant murmur Gastrointestinal: soft, positive bowel sounds Appropriately tender to palpation Musculoskeletal: no edema Neurological: non-focal, normal sensation Deviation from normal: Flat affect Skin: no rash Dx/Plan (1) Abdominal abscess Code(s): [id number] - Status: Acute (2) PADDY (acute kidney injury) Code(s): N17.9 - ACUTE KIDNEY FAILURE, UNSPECIFIED Status: Resolved (3) Anemia Code(s): D64.9 - ANEMIA, UNSPECIFIED Status: Chronic (4) HLD (hyperlipidemia) Code(s): E78.5 - HYPERLIPIDEMIA, UNSPECIFIED Status: Chronic (5) HTN (hypertension) Code(s): I10 - ESSENTIAL (PRIMARY) HYPERTENSION Status: Chronic (6) Hypernatremia Code(s): E87.0 - HYPEROSMOLALITY AND HYPERNATREMIA Status: Resolved (7) Hypothyroid Code(s): E03.9 - HYPOTHYROIDISM, UNSPECIFIED Status: Chronic (8) Non-Hodgkin lymphoma Code(s): C85.90 - NON-HODGKIN LYMPHOMA, UNSPECIFIED, UNSPECIFIED SITE Status: Acute (9) Type 2 diabetes mellitus Status: Chronic (10) Volume depletion Code(s): E86.9 - VOLUME DEPLETION, UNSPECIFIED Status: Resolved - Plan Plan: Abdominal wall abscess -laparotomy on 02/11; extubated on 02/12 -On Zosyn per Dr. Sims -will follow Dr. Sims's recs; appreciate his help -diet per Dr. Sims; moved to full liquid today -consider Flagyl for better anaerobic coverage -WBC 4 > 9.6 > 11.4 > 9; possibly 2/2 to operation; afebrile; continue to monitor Urinary retention -castellano in place -Urine Cx concerning for yeast species, starting fluconazole -f/u urology outpt Severe hypernatremia 2/2 volume depletion, resolved -s/p slow correction with fluid resuscitation -Monitor electrolytes Bradycardia, resolved -HR in 70s and 80s -will monitor Diarrhea -likely 2/2 antibiotics -C diff negative Pre renal PADDY, resolved -Serial improvements continue -Nephrology consulted, appreciate recs Hypokalemia -will monitor -given 40 PO today DM2 -borderline hypoglycemia prior to recent surgery -home metformin being held -SSI in place with hypoglycemia protocol Poor oral intake -s/p dietitian consult, appreciate recs -suplena supplementation NHL -Monitoring H/H Anemia -Monitoring H/H -transfusion x2 on 02/06 and x2 on 02/11 during surgery -Hemoglobin 11.0 > 9 > 7.9; asymptomatic -CBC for tomorrow Hypothyroidism -home levothyroxine currently being held HTN -Holding coreg and clonidine; normotensive HLD -Continue home lovastatin Dispo: will likely discharge Wednesday if diet is tolerated Lines: L subclavian central line, L chest mediport PPx: Protonix, DVT ppx 24hrs post op Diet: Full liquids Fluids: 135 ml/hr LR Addendum - Attending - Attending Attestation Date/Time: 02/15/20 1141 I personally evaluated the patient and discussed the management with Dr. Pandya. I agree with the History, Examination, Assessment and Plan documented above with any addition or exceptions noted below. Patient stable. Awaiting final recs, hoping to ADAT and if tolerating, plan for dc tomorrow morning to SNF.
[2020-02-15 07:17] LABS: #Eosinphils 0.1 thou/uL (0.0-0.7); #Lymphocytes 0.8 thou/uL (1.20-3.40); #Monocytes 0.3 thou/uL (0.11-0.59); #Neutrophils 7.8 thou/uL (1.40-6.50); %Basophils 0.1 % (0.0-1.0); %Lymphocytes 9.2 % (21.0-51.0); %Neutrophils 86.7 % (42.0-75.0); Hemoglobin 7.9 g/dL (12.0-16.0); Mean Corpuscular HGB CONC 32.3 g/dL (32.0-36.0); Mean Corpuscular Hemoglobin 27.6 pg (27.0-31.0); Mean Corpuscular Volume 85.2 fL (78.0-98.0); Mean Platelet Volume 11.6 fL (7.4-10.4); Platelet Count 124 thou/uL (130-400); RBC Distribution Width 19.6 % (11.5-14.5); Red Blood Cell (RBC) Count 2.87 mill/uL (4.20-5.40)
[2020-02-15 07:37] LABS: Anion Gap 11 mmol/L (10-20); BUN (Urea Nitrogen) 10 mg/dL (9.8-20.1); Calc. Creatinine Clearance 82 mL/min (70-130); Calcium 7.7 mg/dL (7.8-10.44); Carbon Dioxide 24 mmol/L (23-31); Chloride 112 mmol/L (98-107); Estimated GFR-MDRD 87; Glucose 73 mg/dL (80-115); Potassium 3.2 mmol/L (3.5-5.1); Sodium 144 mmol/L (136-145)
[2020-02-15] MEDS ORDERED: Potassium Chloride 20 MEQ TAB PO SCH (08:15)
[2020-02-15] MEDS: Fluconazole 100 MG TAB PO SCH (09:30)
[2020-02-15] MEDS: Albuterol Sulfate 2.5 mg/3 ml Neb NEB SCH ×4 (11:05→22:26)
[2020-02-15] MEDS: Lactated Ringer's 1,000 ML IV SCH (12:39)
--- NOTE | 2020-02-15 18:11 | PRG ---
DATE OF SERVICE: SUBJECTIVE: Alicja An is doing well today. She is tolerating her full liquids. She has not had any nausea or vomiting. OBJECTIVE: VITAL SIGNS: Temperature 98.2, pulse 61, blood pressure 147/78. Her wound VAC is in place. LUNGS: Clear to auscultation. CARDIAC: Regular rate and rhythm without murmur or gallop. ABDOMEN: Soft. Bowel sounds present. LABORATORY DATA: White count 11 and hemoglobin 9. Basic metabolic profile normal. Potassium 3.2. ASSESSMENT AND PLAN: 1. The patient is doing well. Her acute renal failure has resolved. She has normal renal function. Urine output is good. 2. Abdominal wound VAC. Continue wound care tomorrow. 3. She can change to oral antibiotics, probably Augmentin b.i.d. for about 5 days and then discontinue. Augmentin alone will just suffice. 4. Deconditioning. Needs help with wound care would the patient has lost her position at [facility] in [place] due to a wound VAC necessity and will arrange another unit. She should be able to transfer tomorrow. Job ID: [id number]
[2020-02-15] MEDS: Atorvastatin Calcium 10 MG TAB PO SCH (22:10)
[2020-02-15] MEDS: Amoxicillin/Potassium Clav 500 MG TAB PO SCH (22:10)
[2020-02-16] MEDS: Albuterol Sulfate 2.5 mg/3 ml Neb NEB SCH ×6 (02:14→22:39)
[2020-02-16] MEDS: Levothyroxine Sodium 75 MCG TAB PO SCH (04:48)
[2020-02-16 05:04] LABS: #Eosinphils 0.1 thou/uL (0.0-0.7); #Lymphocytes 0.7 thou/uL (1.20-3.40); #Monocytes 0.3 thou/uL (0.11-0.59); #Neutrophils 5.4 thou/uL (1.40-6.50); %Basophils 0.3 % (0.0-1.0); %Eosinophils 1.2 % (0.0-10.0); %Lymphocytes 10.5 % (21.0-51.0); %Monocytes 4.3 % (0.0-10.0); %Neutrophils 83.7 % (42.0-75.0); Hemoglobin 7.9 g/dL (12.0-16.0); Mean Corpuscular Hemoglobin 27.3 pg (27.0-31.0); Mean Corpuscular Volume 85.2 fL (78.0-98.0); Mean Platelet Volume 11.6 fL (7.4-10.4); Platelet Count 134 thou/uL (130-400); RBC Distribution Width 19.3 % (11.5-14.5); Red Blood Cell (RBC) Count 2.89 mill/uL (4.20-5.40); White Blood Cell (WBC) Count 6.5 thou/uL (4.8-10.8)
[2020-02-16 05:31] LABS: Anion Gap 10 mmol/L (10-20); BUN (Urea Nitrogen) 9 mg/dL (9.8-20.1); Calc. Creatinine Clearance 78 mL/min (70-130); Carbon Dioxide 24 mmol/L (23-31); Chloride 111 mmol/L (98-107); Estimated GFR-MDRD 82; Glucose 76 mg/dL (80-115); Magnesium 1.8 mg/dL (1.6-2.6); Potassium 3.6 mmol/L (3.5-5.1); Sodium 141 mmol/L (136-145)
--- NOTE | 2020-02-16 05:59 | PDOC.FM ---
- Subjective Subjective: Resting comfortably in bed. Wound vac in place and draining. Denies pain, N/V, SOB, Chest pain. Reports good PO intake - Objective Vital Signs & Weight: Vital Signs (12 hours) Temp Pulse Resp BP Pulse Ox 02/16/20 04:27 98.0 F 65 16 130/75 98 02/16/20 02:14 66 12 100 02/16/20 00:45 97.8 F 64 17 128/66 99 02/15/20 22:26 62 12 02/15/20 20:26 98.2 F 62 17 133/69 100 02/15/20 18:37 61 12 100 Weight Admit Weight 67.302 kg Weight 74.928 kg Most Recent Monitor Data Heart Rate from ECG 73 NIBP 140/80 NIBP BP-Mean 78 Respiration from ECG 21 SpO2 99 I&O: 02/14/20 02/15/20 02/16/20 06:59 06:59 06:59 Intake Total 1484 1350 1850 Output Total 695 1400 850 Balance 789 -50 1000 Result Diagrams: 02/16/20 04:47 02/16/20 04:47 Phys Exam - Physical Examination Constitutional: NAD HEENT: PERRLA, moist MMs Neck: full ROM Respiratory: no wheezing, no rales, no rhonchi Cardiovascular: RRR, no significant murmur Gastrointestinal: soft, no distention, positive bowel sounds Tender to palpation Musculoskeletal: no edema Neurological: normal sensation Skin: no rash Dx/Plan (1) Abdominal abscess Code(s): [id number] - Status: Acute (2) PADDY (acute kidney injury) Code(s): N17.9 - ACUTE KIDNEY FAILURE, UNSPECIFIED Status: Resolved (3) Anemia Code(s): D64.9 - ANEMIA, UNSPECIFIED Status: Chronic (4) HLD (hyperlipidemia) Code(s): E78.5 - HYPERLIPIDEMIA, UNSPECIFIED Status: Chronic (5) HTN (hypertension) Code(s): I10 - ESSENTIAL (PRIMARY) HYPERTENSION Status: Chronic (6) Hypernatremia Code(s): E87.0 - HYPEROSMOLALITY AND HYPERNATREMIA Status: Resolved (7) Hypothyroid Code(s): E03.9 - HYPOTHYROIDISM, UNSPECIFIED Status: Chronic (8) Non-Hodgkin lymphoma Code(s): C85.90 - NON-HODGKIN LYMPHOMA, UNSPECIFIED, UNSPECIFIED SITE Status: Acute (9) Type 2 diabetes mellitus Status: Chronic (10) Volume depletion Code(s): E86.9 - VOLUME DEPLETION, UNSPECIFIED Status: Resolved - Plan Plan: Abdominal wall abscess -laparotomy on 02/11; extubated on 02/12 -On Augmentin -will follow Dr. Sims's recs; appreciate his help -WBC has normalized, likely secondary to surgery -No longer able to go to [facility] due to wound vac, pending placement Urinary retention -castellano in place -Urine Cx concerning for yeast species, starting fluconazole -f/u urology outpt Severe hypernatremia 2/2 volume depletion, resolved -s/p slow correction with fluid resuscitation -Monitor electrolytes Bradycardia, resolved -HR in 70s and 80s -will monitor Diarrhea -likely 2/2 antibiotics -C diff negative Pre renal PADDY, resolved -Serial improvements continue -Nephrology consulted, appreciate recs Hypokalemia -will monitor -given 40 PO today DM2 -borderline hypoglycemia prior to recent surgery -home metformin ordered -SSI in place with hypoglycemia protocol Poor oral intake -improved, CC diet ordered -consider supplementing with suplena NHL -Monitoring H/H Anemia -Monitoring H/H -transfusion x2 on 02/06 and x2 on 02/11 during surgery -Hemoglobin 11.0 > 9 > 7.9 > 7.9; asymptomatic -CBC for tomorrow Hypothyroidism -home levothyroxine HTN -Holding coreg and clonidine; normotensive HLD -Continue home lovastatin Dispo: pending placement Lines: L subclavian central line, L chest mediport PPx: Protonix, DVT ppx 24hrs post op Diet: CC Fluids: none Addendum - Attending - Attending Attestation Date/Time: 02/16/20 7015 I personally evaluated the patient and discussed the management with Dr. Pandya. I agree with the History, Examination, Assessment and Plan documented above with any addition or exceptions noted below. Patient doing well. She is improving from her abdominal wall cellulitis and abscess related to colo-cutaneous fistula. She was accepted for SNF in [facility] but they rejected after learning of her wound vac. We are awaiting acceptance to another facility and will be stable for discharge at that time.
[2020-02-16] MEDS: Polyethylene Glycol 3350 17 GM Packet PO SCH (08:59)
[2020-02-16] MEDS: Amoxicillin/Potassium Clav 500 MG TAB PO SCH ×2 (09:00→21:15)
[2020-02-16] MEDS: Fluconazole 100 MG TAB PO SCH (09:00)
[2020-02-16] MEDS: metFORMIN 500 MG TAB PO SCH ×2 (09:00→17:00)
--- NOTE | 2020-02-16 18:10 | PRG ---
DATE OF SERVICE: 02/16/2020 SUBJECTIVE: Alicja An is doing well today. The patient is tolerating her regular diet. She is eating better. Her appetite is better. She is articulating and communicating better. OBJECTIVE: VITAL SIGNS: Temperature 97.9 degrees, pulse 68, blood pressure 102/56. LUNGS: Clear to auscultation. CARDIAC: Regular rate and rhythm. No murmur or gallop. ABDOMEN: Soft. Plus bowel sounds. Her abdominal wound is granulating. VAC changed today. GENITOURINARY: The patient's Rivero has been requested to be removed. Urine output has been good. LABORATORY DATA: White count 6, hemoglobin 7.9. Basic metabolic profile is normal. ASSESSMENT AND PLAN: Status post repair of incarcerated incisional hernia and drainage of abscess in the hernia sac, abdominal wall with wound opening and healing by secondary intention. Today's wound VAC care reveals the fascia is intact. The wound is granulating and healing. The patient can be continued on Augmentin p.o. for about 5 days and discontinue this. The patient is stable for transfer to a care facility. Previous care facility denied stay due to wound VAC presence and the patient is ready for discharge over the weekend to a care facility with wound VAC and oral antibiotics for probably 5 days. She can follow up with me in about 2 to 3 weeks. She should avoid lifting over 25 pounds, otherwise be ambulating. Physical Therapy is working with her and mobility is poor, but they are working with her. Job ID: [id number]
[2020-02-16] MEDS: Atorvastatin Calcium 10 MG TAB PO SCH (21:15)
[2020-02-17] MEDS: Albuterol Sulfate 2.5 mg/3 ml Neb NEB SCH ×6 (03:14→22:16)
[2020-02-17] MEDS: Levothyroxine Sodium 75 MCG TAB PO SCH (06:11)
--- NOTE | 2020-02-17 07:14 | PDOC.FM ---
- Subjective Subjective: Pt resting comfortably in bed. Denies pain, SOB. - Objective Vital Signs & Weight: Vital Signs (12 hours) Temp Pulse Resp BP Pulse Ox 02/17/20 07:05 97.7 F 60 14 138/73 100 02/17/20 06:25 98.1 F 58 L 16 136/74 98 02/17/20 03:14 65 12 97 02/16/20 23:38 98.2 F 65 16 126/66 97 02/16/20 22:39 61 12 99 02/16/20 20:03 98.8 F 68 16 129/84 100 02/16/20 20:00 100 Weight Admit Weight 67.302 kg Weight 74.928 kg Most Recent Monitor Data Heart Rate from ECG 73 NIBP 140/80 NIBP BP-Mean 78 Respiration from ECG 21 SpO2 99 I&O: 02/16/20 02/17/20 02/18/20 06:59 06:59 06:59 Intake Total 1850 570 Output Total 850 600 Balance 1000 -30 Result Diagrams: 02/16/20 04:47 02/16/20 04:47 Phys Exam - Physical Examination Constitutional: NAD HEENT: PERRLA, moist MMs Neck: supple Respiratory: no wheezing, no rales, no rhonchi, clear to auscultation bilateral Cardiovascular: RRR, no significant murmur Gastrointestinal: soft, no distention, positive bowel sounds ATTP Musculoskeletal: no edema Psychiatric: A&O x 3 Deviation from normal: Flat affect Dx/Plan (1) Abdominal abscess Code(s): [id number] - Status: Acute (2) PADDY (acute kidney injury) Code(s): N17.9 - ACUTE KIDNEY FAILURE, UNSPECIFIED Status: Resolved (3) Anemia Code(s): D64.9 - ANEMIA, UNSPECIFIED Status: Chronic (4) HLD (hyperlipidemia) Code(s): E78.5 - HYPERLIPIDEMIA, UNSPECIFIED Status: Chronic (5) HTN (hypertension) Code(s): I10 - ESSENTIAL (PRIMARY) HYPERTENSION Status: Chronic (6) Hypernatremia Code(s): E87.0 - HYPEROSMOLALITY AND HYPERNATREMIA Status: Resolved (7) Hypothyroid Code(s): E03.9 - HYPOTHYROIDISM, UNSPECIFIED Status: Chronic (8) Non-Hodgkin lymphoma Code(s): C85.90 - NON-HODGKIN LYMPHOMA, UNSPECIFIED, UNSPECIFIED SITE Status: Acute (9) Type 2 diabetes mellitus Status: Chronic (10) Volume depletion Code(s): E86.9 - VOLUME DEPLETION, UNSPECIFIED Status: Resolved - Plan Plan: Abdominal wall abscess -laparotomy on 02/11; extubated on 02/12 -On Augmentin -will follow Dr. Sims's recs; appreciate his help -pending placement Urinary retention -castellano removed yesterday, pt unable to void with ~500 on bladder scan, castellano inserted -Urine Cx concerning for yeast species, starting fluconazole -f/u urology outpt Severe hypernatremia 2/2 volume depletion, resolved -s/p slow correction with fluid resuscitation -Monitor electrolytes Bradycardia, resolved -will monitor Pre renal PADDY, resolved -Serial improvements continue -Nephrology consulted, appreciate recs Hypokalemia -will monitor DM2 -borderline hypoglycemia prior to recent surgery -home metformin ordered -SSI in place with hypoglycemia protocol Poor oral intake -improved, CC diet ordered -consider supplementing with suplena NHL -Monitoring H/H Anemia -Monitoring H/H -transfusion x2 on 02/06 and x2 on 02/11 during surgery -Hemoglobin 11.0 > 9 > 7.9 > 7.9; asymptomatic -CBC for tomorrow Hypothyroidism -home levothyroxine HTN -Holding coreg and clonidine; normotensive HLD -Continue home lovastatin Dispo: pending placement Lines: L subclavian central line, L chest mediport PPx: Protonix, Lovenox 40 mg Diet: CC Fluids: none Addendum - Attending - Attending Attestation Date/Time: 02/17/202002 I personally evaluated the patient and discussed the management with Dr. Pandya. I agree with the History, Examination, Assessment and Plan documented above with any addition or exceptions noted below. Had some urinary retention overnight- castellano catheter in place. Keep this in until reevaluation by urology as an outpatient. Stable for d/c once placement set up
[2020-02-17] MEDS: Polyethylene Glycol 3350 17 GM Packet PO SCH (08:11)
[2020-02-17] MEDS: metFORMIN 500 MG TAB PO SCH ×2 (08:11→17:31)
[2020-02-17] MEDS: Amoxicillin/Potassium Clav 500 MG TAB PO SCH ×2 (08:11→20:39)
[2020-02-17] MEDS: Enoxaparin Sodium 40 MG/0.4 ML SYRINGE SC SCH (08:11)
[2020-02-17] MEDS: Fluconazole 100 MG TAB PO SCH (08:11)
[2020-02-17 12:46] LABS: SARS-CoV-2 MS2 Positive; SARS-CoV-2 N Gene Negative; SARS-CoV-2 S Gene Negative; SARS-CoV-2 by NAA Not Detected (NotDetected); SARS-CoV-2 orf1ab Negative
--- NOTE | 2020-02-17 20:17 | PDOC.BPN ---
- Brief Progress Note Doing well s/p current incisional hernia repair. Postoperative pain well controlled with current regimen. Tolerating regular diet, without nausea or vomiting. Denies flatus and bowel movements. Ambulating independently. Refusing physical therapy EXAM: VS: T 97.7 HR 54 BP 158/73 RR 18 SpO2 [ ] General: Alert and oriented, no acute distress, resting comfortably Pulmonary: No dyspnea or difficulty breathing Abdomen: Soft, non-distended, incisions clean, wound VAC in place CV: Regular rate and rhythm, palpable distal pulses Extremities: No edema I/O: [ ] oral intake [ ] UOP LABORATORY / IMAGING: Labs reviewed. Demonstrates white blood cell count of 6.5 and hemoglobin of 7.9 PLAN: 64-year-old female status post recurrent incisional hernia repair. Continue supportive care Placement pending
[2020-02-17] MEDS: Atorvastatin Calcium 10 MG TAB PO SCH (20:39)
[2020-02-18] MEDS: Albuterol Sulfate 2.5 mg/3 ml Neb NEB SCH ×6 (02:20→22:28)
--- NOTE | 2020-02-18 05:33 | PDOC.FM ---
- Subjective Subjective: Reports that she is doing well. Denies pain. Ready to leave the hospital. - Objective MAR Reviewed: Yes Vital Signs & Weight: Vital Signs (12 hours) Temp Pulse Resp BP Pulse Ox 02/18/20 04:09 98.3 F 66 16 138/76 98 02/18/20 02:20 12 02/17/20 23:27 97.7 F 66 16 149/79 H 100 02/17/20 22:16 62 12 02/17/20 21:09 98.1 F 66 16 136/83 98 02/17/20 20:00 98 02/17/20 18:23 57 L 12 96 Weight Admit Weight 67.302 kg Weight 74.928 kg Most Recent Monitor Data Heart Rate from ECG 73 NIBP 140/80 NIBP BP-Mean 78 Respiration from ECG 21 SpO2 99 I&O: 02/16/20 02/17/20 02/18/20 06:59 06:59 06:59 Intake Total 1850 570 500 Output Total 850 600 450 Balance 1000 -30 50 Result Diagrams: 02/18/20 05:38 02/18/20 05:38 Phys Exam - Physical Examination Constitutional: NAD HEENT: moist MMs Neck: full ROM Respiratory: no wheezing, no rales, no rhonchi, clear to auscultation bilateral Cardiovascular: RRR, no significant murmur Gastrointestinal: soft, no distention, positive bowel sounds Musculoskeletal: no edema Deviation from normal: Flat Skin: no rash Dx/Plan (1) Abdominal abscess Code(s): [id number] - Status: Acute (2) PADDY (acute kidney injury) Code(s): N17.9 - ACUTE KIDNEY FAILURE, UNSPECIFIED Status: Resolved (3) Anemia Code(s): D64.9 - ANEMIA, UNSPECIFIED Status: Chronic (4) HLD (hyperlipidemia) Code(s): E78.5 - HYPERLIPIDEMIA, UNSPECIFIED Status: Chronic (5) HTN (hypertension) Code(s): I10 - ESSENTIAL (PRIMARY) HYPERTENSION Status: Chronic (6) Hypernatremia Code(s): E87.0 - HYPEROSMOLALITY AND HYPERNATREMIA Status: Resolved (7) Hypothyroid Code(s): E03.9 - HYPOTHYROIDISM, UNSPECIFIED Status: Chronic (8) Non-Hodgkin lymphoma Code(s): C85.90 - NON-HODGKIN LYMPHOMA, UNSPECIFIED, UNSPECIFIED SITE Status: Acute (9) Type 2 diabetes mellitus Status: Chronic (10) Volume depletion Code(s): E86.9 - VOLUME DEPLETION, UNSPECIFIED Status: Resolved - Plan Plan: Abdominal wall abscess -laparotomy on 02/11; extubated on 02/12 -Augmentin and wound vac -Per Dr. Sims, stable for d/c -pending placement Urinary retention -castellano to remain in place until outpatient urology -Urine Cx concerning for yeast species, starting fluconazole Severe hypernatremia 2/2 volume depletion, resolved -latest Na: 141 -s/p slow correction with fluid resuscitation -Monitor electrolytes Bradycardia, resolved -will monitor Pre renal PADDY, resolved -latest Cr: 0.77 -Nephrology consulted, appreciate recs Hypokalemia, resolved -K: 3.8 -will monitor DM2 -borderline hypoglycemia prior to recent surgery -home metformin ordered -SSI in place with hypoglycemia protocol Poor oral intake -improved, CC diet ordered -consider supplementing with suplena NHL -Monitoring H/H Anemia -Monitoring H/H -transfusion x2 on 02/06 and x2 on 02/11 during surgery -Hemoglobin 11.0 > 9 > 7.9 > 7.9; asymptomatic -CBC for tomorrow Hypothyroidism -home levothyroxine HTN -Holding coreg and clonidine; normotensive HLD -Continue home lovastatin Dispo: pending placement Lines: L subclavian central line, L chest mediport PPx: Protonix, Lovenox 40 mg Diet: CC Fluids: none Addendum - Attending - Attending Attestation Date/Time: 02/18/20 [id number] I personally evaluated the patient and discussed the management with Dr. Pandya I agree with the History, Examination, Assessment and Plan documented above with any addition or exceptions noted below. Stable to d/c to SNF when set up by Anemia- patient prefers to hold off on transfusion. Repeat CBC tomorrow
[2020-02-18] MEDS: Levothyroxine Sodium 75 MCG TAB PO SCH (05:57)
[2020-02-18 05:59] LABS: #Eosinphils 0.1 thou/uL (0.0-0.7); #Lymphocytes 0.7 thou/uL (1.20-3.40); #Monocytes 0.3 thou/uL (0.11-0.59); #Neutrophils 4.3 thou/uL (1.40-6.50); %Basophils 0.4 % (0.0-1.0); %Eosinophils 1.7 % (0.0-10.0); %Lymphocytes 13.6 % (21.0-51.0); %Monocytes 4.8 % (0.0-10.0); %Neutrophils 79.5 % (42.0-75.0); Hemoglobin 7.6 g/dL (12.0-16.0); Mean Corpuscular HGB CONC 31.1 g/dL (32.0-36.0); Mean Corpuscular Hemoglobin 27.6 pg (27.0-31.0); Mean Corpuscular Volume 88.7 fL (78.0-98.0); Mean Platelet Volume 11.4 fL (7.4-10.4); Platelet Count 127 thou/uL (130-400); RBC Distribution Width 19.8 % (11.5-14.5); Red Blood Cell (RBC) Count 2.73 mill/uL (4.20-5.40); White Blood Cell (WBC) Count 5.5 thou/uL (4.8-10.8)
[2020-02-18 06:14] LABS: Anion Gap 11 mmol/L (10-20); BUN (Urea Nitrogen) 9 mg/dL (9.8-20.1); Calc. Creatinine Clearance 85 mL/min (70-130); Calcium 8.1 mg/dL (7.8-10.44); Carbon Dioxide 22 mmol/L (23-31); Chloride 112 mmol/L (98-107); Estimated GFR-MDRD Greater than 90; Glucose 72 mg/dL (80-115); Potassium 3.8 mmol/L (3.5-5.1); Sodium 141 mmol/L (136-145)
[2020-02-18] MEDS: metFORMIN 500 MG TAB PO SCH ×2 (08:27→16:58)
[2020-02-18] MEDS: Polyethylene Glycol 3350 17 GM Packet PO SCH (08:28)
[2020-02-18] MEDS: Enoxaparin Sodium 40 MG/0.4 ML SYRINGE SC SCH (08:28)
[2020-02-18] MEDS: Fluconazole 100 MG TAB PO SCH (08:28)
[2020-02-18] MEDS: Amoxicillin/Potassium Clav 500 MG TAB PO SCH ×2 (08:44→21:14)
--- NOTE | 2020-02-18 17:15 | PDOC.BPN ---
- Brief Progress Note TRANSITION OF CARE NOTE Admission Date: 02/05/2020 Admitting Attending: Karon Consults: 1. Nephro: Dr. Zabala 2. General Surgery: Dr. Sims Procedures and Imagin. CT Abdomen outside hospital: abscess in r. abdominal wall 2. Chest Xray: a.No acute intrathoracic abnormality b.Calcific tendinosis left rotator cuff 3. Renal Ultrasound a.Normal appearance of kidneys 4. Abscess Drainage CT a.Successful CT-guided percutaneous drainage of large abscess within a large ventral abdominal hernia. 8 welsh pigtail drainage catheter left to external drainage 5. Hepatobiliary Scan Nuclear Medicine a.No evidence for bile leak. Patent cystic and common bile duct stent 6. Interventional Procedure a.Successful exchange of the 8 welsh abscess drainage catheter for a new 10 welsh general purpose drainage catheter 7. CT Abdomen/Pelvis a.Large 4 cm left breast mass. Nonemergent f/u diagnostic u/s recommended b.Small volume gas in the subhepatic space near the gallbladder with extraluminal stones still may reflect remote bladder rupture c.Minimal size decrease of the fluid containing abscess through the ventral hernia which does contain a pigtail catheter d.No evidence of bowel obstruction e.No nephroureterolithiasis or hydroureteronephrosis. No secondary evidence of recently passed stone. f.The known mesenteric mass is not well interrogated on this examination likely has decreased in size from patients known radiation therapy g.Although limited without IV contrast, the previously described hepatic metastatic foci from March 2019 are no longer appreciated HPI/Hospital Course: Ms. An is a 64 female the past medical history of NHL treated with chemo and radiation, HTN, HLD, DMII , hypothyroidism who presented to an outside Hospital after being found down in her house. At the outside Hospital she was found to have Na:174, BUN/Cr: 64.8/5.0, K: 3.[address] of the abdomen revealed right abdominal wall abscess. Her free water deficit was calculated to be 8L. Her volume deficit was replaced carefully as to avoid rapid correction and she was started on renally dosed Zosyn for her abscess. During her stay Nephrology, Dr. Lisa, was consulted to help manage the prerenal PADDY and General Surgery, Dr. Sims, was consulted for further evaluation of her abdominal wall abscess. General surgery placed Surinamese drain on 02/05 and cultures of the drainage revealed proteus and E coli. Patient was transfused x 1 on 02/06 due to a hemoglobin of 6.5. Her hypernatremia and PADDY continued to resolve with fluid resuscitation. The patient also experienced urinary retention requiring a Rivero. UA with cx was also obtained revealing yeast and the patient was started on fluconazole to end on 02/27. She will likely need follow-up with urology outpatient. On 02/11 the patient experienced external rupture of her abscess and was taken back to the OR by dr. Sims who performed an . A wound VAC was placed patient was continued on Zosyn. Patient was to be discharged to SNF facility near [place] however due to her wound vac placement was denied currently pending placement. She has now been switched to Augmentin PO and is receiving her home meds of metformin, levothyroxine, atorvastatin. Holding: carvedilol, clonidine, HCTZ, losartan
[2020-02-18] MEDS: Atorvastatin Calcium 10 MG TAB PO SCH (21:14)
[2020-02-19] MEDS: Albuterol Sulfate 2.5 mg/3 ml Neb NEB SCH ×4 (02:09→14:19)
[2020-02-19 04:22] LABS: #Eosinphils 0.1 thou/uL (0.0-0.7); #Lymphocytes 0.8 thou/uL (1.20-3.40); #Monocytes 0.3 thou/uL (0.11-0.59); #Neutrophils 5.6 thou/uL (1.40-6.50); %Basophils 0.3 % (0.0-1.0); %Eosinophils 1.2 % (0.0-10.0); %Lymphocytes 12.2 % (21.0-51.0); %Monocytes 3.8 % (0.0-10.0); %Neutrophils 82.4 % (42.0-75.0); Hemoglobin 7.2 g/dL (12.0-16.0); Mean Corpuscular HGB CONC 32.3 g/dL (32.0-36.0); Mean Corpuscular Hemoglobin 27.6 pg (27.0-31.0); Mean Corpuscular Volume 85.2 fL (78.0-98.0); Mean Platelet Volume 11.4 fL (7.4-10.4); Platelet Count 121 thou/uL (130-400); RBC Distribution Width 19.9 % (11.5-14.5); White Blood Cell (WBC) Count 6.7 thou/uL (4.8-10.8)
[2020-02-19] MEDS: Levothyroxine Sodium 75 MCG TAB PO SCH (05:56)
--- NOTE | 2020-02-19 06:49 | PDOC.FM ---
- Subjective Subjective: Pt is doing well this AM. Denies any new concerns or complaints. Would like to leave. Denies fever, chills, HULL, CP, new abdominal pain. Patient states she is eating without difficulty, but as per nursing report, patient has had a poor appetite. - Objective MAR Reviewed: Yes Vital Signs & Weight: Vital Signs (12 hours) Temp Pulse Resp BP BP Pulse Ox 02/19/20 06:35 62 16 100 02/19/20 03:46 98.1 F 62 16 143/80 H 100 02/18/20 20:00 98.0 F 60 16 166/83 H 97 02/18/20 19:40 59 L 16 99 Weight Admit Weight 67.302 kg Weight 74.928 kg Most Recent Monitor Data Heart Rate from ECG 73 NIBP 140/80 NIBP BP-Mean 78 Respiration from ECG 21 SpO2 99 I&O: 02/17/20 02/18/20 02/19/20 06:59 06:59 06:59 Intake Total 570 600 500 Output Total 600 850 500 Balance -30 -250 0 Result Diagrams: 02/19/20 04:00 02/18/20 05:38 Phys Exam - Physical Examination Constitutional: NAD HEENT: moist MMs, sclera anicteric Neck: full ROM Respiratory: no wheezing, clear to auscultation bilateral Cardiovascular: RRR, no significant murmur Gastrointestinal: soft, non-tender, positive bowel sounds Musculoskeletal: no edema, pulses present Neurological: moves all 4 limbs Psychiatric: normal affect, A&O x 3 Skin: normal turgor Deviation from normal: abdominal wound vac in place Dx/Plan - Plan Plan: Plan: Abdominal wall abscess -laparotomy on 02/11; extubated on 02/12 -Augmentin and wound vac -Per Dr. Sims, stable for d/c -pending placement Urinary retention -castellano to remain in place until outpatient f/u with urology -Urine Cx concerning for yeast species, starting fluconazole to continue until Feb 28, 2020 Severe hypernatremia 2/2 volume depletion, resolved -s/p slow correction with fluid resuscitation -Continue to monitor electrolytes Bradycardia, resolved -will monitor Pre renal PADDY, resolved -Nephrology consulted, appreciate recs Hypokalemia, resolved -will monitor DM2 -borderline hypoglycemia prior to recent surgery -home metformin ordered -SSI in place with hypoglycemia protocol Poor oral intake -improved, CC diet ordered -consider supplementing with suplena NHL -Monitoring H/H Anemia -Monitoring H/H -transfusion x2 on 02/06 and x2 on 02/11 during surgery -Hemoglobin 11.0 > 9 > 7.9 > 7.9> 7.6 >7.2; asymptomatic -continue to monitor Hypothyroidism -home levothyroxine HTN -Holding coreg and clonidine; normotensive HLD -Continue home lovastatin Dispo: pending placement Lines: L subclavian central line, L chest mediport PPx: Protonix, Lovenox 40 mg Diet: CC Fluids: none
[2020-02-19] MEDS: metFORMIN 500 MG TAB PO SCH ×2 (08:25→16:58)
[2020-02-19] MEDS: Fluconazole 100 MG TAB PO SCH (08:25)
[2020-02-19] MEDS: Enoxaparin Sodium 40 MG/0.4 ML SYRINGE SC SCH (08:26)
[2020-02-19] MEDS: Amoxicillin/Potassium Clav 500 MG TAB PO SCH (08:26)
[2020-02-19] MEDS: Polyethylene Glycol 3350 17 GM Packet PO SCH (08:26)
--- NOTE | 2020-02-19 12:56 | PRG ---
DATE OF SERVICE: 02/19/2020 Ms. An is a 64-year-old black female patient, who was admitted after being found at home. She was admitted with hypernatremia and an acute kidney injury. She also has a history of non-Hodgkin lymphoma causing a chronic anemia. In the event, she was appropriately treated for her hypernatremia and also ended up getting a transfusion of packed red blood cells for her anemia. She is much more awake and alert, but still not very forthcoming as to what happened. She also had an abdominal wall abscess, which was subsequently drained percutaneously under CT guidance. She is on broad-spectrum antibiotics. Job ID: [id number]
--- NOTE | 2020-02-19 14:01 | PRG ---
DATE OF SERVICE: 02/19/2020 SUBJECTIVE: Alicja An is doing well today. OBJECTIVE: VITAL SIGNS: Stable. Afebrile. GENERAL: She is tolerating a diet. ABDOMEN: She has had bowel movements. EXTREMITIES: Her wound VAC was changed and her wound looks excellent. LABORATORY DATA: White count 6.7, hemoglobin 7.2, stable. Basic metabolic profile normal. BUN 9, creatinine 0.77, GFR greater than 90. ASSESSMENT AND PLAN: Overall, she is doing well. We can stop the Augmentin orally today. She does not need any more antibiotics. She can be transferred to assisted care at any time. I will see her in my office and follow up in the next few weeks. Job ID: [id number]
[2020-02-19 15:33] VITALS: BP 135/78
[2020-02-19 16:58] VITALS: TEMP 99.4
[2020-02-19] MEDS ORDERED: Mirtazapine 15 MG TAB PO SCH (21:00)
--- NOTE | 2020-02-20 13:43 | DIS ---
DATE OF ADMISSION: 02/05/2020 DATE OF DISCHARGE: 02/19/2020 RESIDENT: Joellen Gorman MD, PGY-1. ADMITTING ATTENDING: Mauri Ellis MD. DISCHARGE ATTENDING: Crow Mcfarland MD. CONSULTS: Nephrology, Dr. Lisa and General Surgery, Dr. Sims. PROCEDURES: Refer to progress note by Dr. Yi Pandya on 02/18/2020. PRIMARY DIAGNOSIS: Abdominal wall abscess. SECONDARY DIAGNOSES: Urinary retention, severe hypernatremia secondary to volume depletion, hypokalemia, diabetes mellitus type 2, poor oral intake, non-Hodgkin lymphoma, anemia, hypothyroidism, hypertension, hyperlipidemia. DISCHARGE MEDICATIONS: 1. Albuterol sulfate 2.5 mg every 4 hours. 2. Atorvastatin 10 mg p.o. at bedtime. 3. Remeron 15 mg at bedtime. 4. Fluconazole 200 mg daily. 5. Levothyroxine 75 mcg oral daily. 6. Metformin 500 mg at bedtime. 7. Lovastatin 40 mg at bedtime. Discontinued medications; 1. Clonidine 0.1 mg b.i.d. 2. Carvedilol 3.125 mg b.i.d. 3. Losartan 25 mg daily. HISTORY OF PRESENT ILLNESS AND HOSPITAL COURSE: Refer to brief progress note by Dr. Yi Pandya on 02/18/2020, nothing new to add to that. The rest of patient 's hospitalization was uneventful, just awaiting placement. Vitals were stable. DISPOSITION: Stable. DISCHARGE INSTRUCTIONS: 1. Location: [facility]. 2. Diet: Diabetic diet, heart healthy diet. 3. Activity: Activity as tolerated. 4. Followup: Follow up with PCP within the next 1 to 2 weeks. Dictated by Jolelen Gorman M.D. Job ID: [id number] MTDD
--- NOTE | 2020-02-21 07:06 | PQF ---
Dear : Demarco Sims Date : 02/21/20 Please exercise your independent, professional judgment in responding to the clarification form. Clinical indicators are provided on the bottom of this form for your review Can you please further clarify if Sepsis is ruled in or ruled out? Sepsis [ yes ] Ruled in diagnosis [ ] Continue to treat [ ] Resolved [ ] Ruled out diagnosis [ ] Improving [ ] Cannot rule out diagnosis [ ] Other diagnosis please specify [ ] Unable to determine Physician Signature: Date/Time: For continuity of documentation, please document condition throughout progress notes and discharge summary. Thank You. To be completed by CDI/Coding staff for physician review: Present Clinical Indicators - Signs / Symptoms / Labs Results and Location in Medical Record [ x ] encepahlopathy secondary to hypernateremia and sepsis Consult 02/04 Dr. Sims pg.2 [ x ] VS BP 99/59, pulse 72, RR 16ED Provider pg.2 ED Pprovider pg..2 [x ] Lactic acidosis ED Pprovider pg.3 [ x ] Transfer for dehydration, sepsis and hypernatremia ED Pprovider pg.3 [ x ] stable without evidence of peritonitis or Sepsis General Surgery PN pg.1 General Surgery PN pg.1 [ x ] Cx reveals E.coli resisitance to multiple drug Family PN pg.2 [ x ] Urine culture concerning for yeast species PN 02/13 [ x ] WBC: 02/04=8.2 02/13=11.4 Labs WBC 02/04 Present Results and Location in Medical Record [ x ] Abdominal wall abscess H and P pg.4 [ x ] 64 yo H and P pg.1 [ x ] DM2 H and P pg.2 [ x ] HTN H and P pg.2 [ x ] NHL H and P pg.2 [ x ] Peritoneal abscess CT drainage 02/05 [ x ] Morbid obesity PN 02/18 Present Results and Location in Medical Record [ x ] Peritoneal abscess drainage Abscess Drainage CT 02/05 [x ] Surgery Consult Dr. Ramsey 02/06 [ x ] Urine Culture Microbiology [ x ] Bacterial Culture Microbiology [ x ] O2 Supplementation Consult Dr. Hernández pg.2 [ x ] IV Fluids MAR [ x ] Zosyn 2.25gm IV MAR [ x ] Amoxicillin 875mg PO MAR [ x ] Abdomen/Pelvis CT 02/11 CDS/Meteorological Equipment Repairer Signature: Aníbal Redmond Phone #: ext [phone] Date 02/20/30 This is a permanent part of the Medical Record [facility]
== END 2020-02-19 18:43 | DRG 853 ==
LOC: ERS 21:09 → 2SE 02-05 00:04 → OBSVTOIN 02-05 00:04 → CCU 02-12 19:51 → T4-B 02-13 17:18 → SURG B 02-14 16:59
PROVIDERS: ADMIT Internal Medicine; ATTEND Student in an Organized Health Care Education/Training Program
PROC: 30233N1 Transfusion of Nonautologous Red Blood Cells into Peripheral Vein, Percutaneous Approach (ICD-10-PCS; 2020-02-07)
PROC: 0W9G30Z Drainage of Peritoneal Cavity with Drainage Device, Percutaneous Approach (ICD-10-PCS; 2020-02-08)
PROC: 0W2GX0Z Change Drainage Device in Peritoneal Cavity, External Approach (ICD-10-PCS; 2020-02-08)
PROC: 0DB80ZZ Excision of Small Intestine, Open Approach (ICD-10-PCS; principal; 2020-02-12)
PROC: 0WQF0ZZ Repair Abdominal Wall, Open Approach (ICD-10-PCS; 2020-02-12)
PROC: 0W9G0ZZ Drainage of Peritoneal Cavity, Open Approach (ICD-10-PCS; 2020-02-12)
PROC: 02HV33Z Insertion of Infusion Device into Superior Vena Cava, Percutaneous Approach (ICD-10-PCS; 2020-02-12)
DX: A41.51 Sepsis due to Escherichia coli [E. coli] (principal); K65.1 Peritoneal abscess; G93.41 Metabolic encephalopathy; L02.211 Cutaneous abscess of abdominal wall; N17.9 Acute kidney failure, unspecified; E87.0 Hyperosmolality and hypernatremia; E87.2 Acidosis; B37.0 Candidal stomatitis; C85.90 Non-Hodgkin lymphoma, unspecified, unspecified site; N39.0 Urinary tract infection, site not specified; Z16.24 Resistance to multiple antibiotics; K52.1 Toxic gastroenteritis and colitis; E11.9 Type 2 diabetes mellitus without complications; I10 Essential (primary) hypertension; E03.9 Hypothyroidism, unspecified; E78.5 Hyperlipidemia, unspecified; D50.9 Iron deficiency anemia, unspecified; K43.9 Ventral hernia without obstruction or gangrene; E86.0 Dehydration; E66.01 Morbid (severe) obesity due to excess calories; E87.6 Hypokalemia; R33.9 Retention of urine, unspecified; T36.95XA Adverse effect of unspecified systemic antibiotic, initial encounter; Z90.710 Acquired absence of both cervix and uterus; Z79.899 Other long term (current) drug therapy; Z79.890 Hormone replacement therapy; Z79.84 Long term (current) use of oral hypoglycemic drugs; Z87.891 Personal history of nicotine dependence; Z68.32 Body mass index [BMI] 32.0-32.9, adult
CPT/HCPCS: 36415; 36416; 36430; 49020; 71045; 74176; 74177; 75984; 76770; 77002; 78226; 80048; 80053; 81001; 82805; 83735; 84100; 84134; 84443; 85025; 85610; 85730; 86850; 86900; 86901; 87070; 87077; 87086; 87186; 87205; 87324; 87449; 87635; 88307; 93005; 93010; 94002; 94640; 96360; A4218; A9537; C1769; C9113; J0295; J1644; J1650; J1815; J1940; J2250; J2405; J2543; J2704; J3010; J3475; J3480; J3490; J7611; P9016; P9045; P9047; S0020; U0003